=== PATIENT | male | born 1965 | race Caucasian/White ===

== ENCOUNTER 2021-07-20 14:31 | Inpatient (IN) | payer MEDICARE, MEDICAID ==
[2021-07-20] MEDS ORDERED: Lactated Ringers 1,000 ML IV ONE (14:59)
--- NOTE | 2021-07-20 15:33 | EDM.PDOC ---
<Daljit Charles - Last Filed: 07/20/21 19:23> ED HPI GENERAL MEDICAL PROBLEM - General Chief Complaint: Respiratory Problem Stated Complaint: REFERAL FROM CLINIC Time Seen by Provider: 07/20/21 14:55 - History of Present Illness INITIAL COMMENTS - FREE TEXT/NARRATIVE: CHIEF COMPLAINT(S): Shortness of breath HISTORY OF PRESENT ILLNESS: This is a 58-year-old man with a past medical history of hypertension and sleep apnea who comes to the emergency department with a chief complaint of shortness of breath. The patient states that for approximately 2 days now he has been experiencing sneezing, alternating fever and chills and shortness of breath. He states that he comes to the emergency department because of increased shortness of breath. He states that he is short of breath all the time. He denies any cough but states that it started like a head cold. He denies any pain. He denies any recent travel, recent surgery or prior history of DVT or PE. He states that he has not had his Covid vaccines. He denies any Covid exposures. He denies any lower extremity edema or history of CHF, asthma or COPD. He denies any tobacco use. REVIEW OF SYSTEMS: Constitutional: Positive for fever and chills Eyes: Denies eye pain Ears, Nose, Mouth, & Throat: Denies earache Cardiovascular: Denies chest pain Respiratory: Positive for shortness of breath Gastrointestinal: Denies Nausea, vomiting, diarrhea, hematochezia. Genitourinary: Denies hematuria Skin:Denies a rash MSK: Denies joint pain Neurological: Denies blurred vision Psychiatric: Denies depression PAST MEDICAL HISTORY: As per history of present illness and as reviewed below otherwise noncontributory. SURGICAL HISTORY: As per history of present illness and as reviewed below otherwise noncontributory. SOCIAL HISTORY: As per history of present illness and as reviewed below otherwise noncontributory. FAMILY HISTORY: As per history of present illness and as reviewed below otherwise noncontributory. EXAMINATION OF ORGAN SYSTEMS/BODY AREAS: Constitutional: Blood pressure is 187/113, heart rate 109, respiratory rate 18 with an oxygen saturation 85% on room air. Patient was saturating 98% on 2 L nasal cannula. Temperature 36.6 General: Middle-aged man who appears to be in a mild amount of respiratory distress Psychiatric: Appropriate mood and affect. Eyes: No scleral icterus or conjunctival erythema ENMT: Moist mucous membranes. No pharyngeal erythema Cardiovascular: Tachycardic but regular no gallops, murmurs, or rubs. Bilateral upper extremity pulses symmetric and intact. No peripheral edema. No JVD. Respiratory: Breath sounds are equal bilaterally no wheezing but there is rhonchorous breath sounds bilaterally patient speaking in 3-4 word sentences. No prolonged expiratory phase. Gastrointestinal: Soft, non-tender, non-distended. Normoactive bowel sounds Genitourinary: No suprapubic tenderness Musculoskeletal: Normal range of motion. Skin: No lesions or abrasions. Neurological: Alert, GCS 15 MEDICAL DECISION MAKING AND COURSE IN THE ED WITH INTERPRETATION/REVIEW OF DIAGNOSTIC STUDIES: This is a this is a 58-year-old man with a past medical history of hypertension and sleep apnea who comes to the emergency department with 2 to 3 days of dyspnea who is hypoxic on room air and hypertensive and tachycardic. At this time shelter monitor did reveal sinus rhythm and pulse oximetry with good waveform on 2 L nasal cannula was 98%. At this time we did obtain an EKG which was unremarkable. At this time differential includes pneumonia, Covid, pneumothorax. Obtain a chest x-ray. Obtain CBC, CMP, INR, lactic acid, Covid, troponin. Will obtain a chest x-ray and an angiogram of the chest to evaluate for pulmonary embolism. We will provide the patient with 1 L of lactated Ringer's bolus. Place the patient on shelter monitor and pulse oximetry. Laboratory: CBC reveals a leukocytosis of 14.22 with neutrophilic predominance. No left shift. INR is normal. CMP is unremarkable except for hypocalcemia at 8.4. Lactic acid is normal. Alkaline phosphatase is elevated at 124. Troponin is negative. BNP is mildly elevated at 291. Covid is negative. The radiological images were viewed by myself along with reading the report from the radiologist. Chest x-ray reveals increased soft tissue density in the right hilum likely due to overlapping vascular structures. A focal infiltrate or mass cannot entirely be excluded. On reevaluation the patient did have an episode of diaphoresis and tachypnea. With deep breathing exercises the patient's heart rate had improved and he was no longer short of breath. POC glucose 128. Given the rhonchorous breath sounds I did discuss with the patient that we may provide him with a DuoNeb treatment. He denies any tobacco use but states that he quit using crack cocaine approximately 1 month ago. He denies any tobacco use currently, cocaine use currently or any other illicit substances. He denies any history of COPD or CHF. He denies any history of asthma. Repeat EKG was obtained which was unremarkable. After labs and chest x-ray I did start the patient on cefepime and vancomycin for presumed pneumonia. We did obtain blood cultures prior to administering the antibiotics. There is no need for 30 cc/kg bolus as the patient is not hypotensive and has a normal lactic acid. There was a delay in starting the antibiotics as there was a patient in the emergency department requiring more urgent attention. The radiological images were viewed by myself along with reading the report from the radiologist. CT angiogram of the chest does not reveal any evidence of pulmonary embolism. There is bilateral patchy infiltrates suggestive of COVID-19 infection. Patient on repeat vitals after his home medication of amlodipine was given had improved. His tachycardia had also improved. He was speaking in full sentences and was no longer short of breath as earlier. I did discuss that I would like to obtain a repeat troponin. He was amenable to this plan. Patient was signed out to oncoming night team physician pending repeat troponin and final disposition DISPOSITION: Patient was signed out to oncoming team physician pending repeat troponin and final disposition CONDITION: Serious PROCEDURES: Cardiac monitoring interpretation, pulse oximetry interpretation FINAL IMPRESSION(S)/DIAGNOSES: 1. Acute hypoxic respiratory failure requiring oxygen supplementation secondary to bilateral multifocal pneumonia 2. Acute bilateral multifocal pneumonia 3. Acute sepsis secondary to bilateral multifocal pneumonia 4. Hypertension likely secondary to medication noncompliance. Critical Care Procedure Note Authorized and performed by: Daljit Charles M.D. Critical Care Time: 74 minutes Due to a high probability of clinically significant, life threatening deterioration, the patient required my highest level of preparedness to intervene emergently and I personally spent this critical care time directly and personally managing the patient. This critical care time included obtaining a history, examining the patient, pulse oximetry; ordering and review of studies; arranging urgent treatment with development of a management plan; evaluation of a patients reponse to treatment; frequent assessment; and discussions with other providers. This critical care time was performed to assess and manage the high probability of imminent, life threatening deterioration that could result in multiorgan failure. It was exclusive of separate billable procedures and treating other patients. Please see MDM section and rest of the note for further information on patient assessment and treatment. Please see MDM section and rest of the note for further information on patient assessment and treatment. Daljit Charles M.D. - Related Data Allergies Allergy/AdvReac Type Severity Reaction Status Date / Time No Known Allergies Allergy Verified 07/20/21 14:57 Home Meds: Home Meds Tamsulosin [Flomax] 0.4 mg PO DAILY 07/20/21 [History] amLODIPine [Norvasc] 10 mg PO DAILY 07/20/21 [History] Past Medical History - Past Health History Medical/Surgical History: Denies Medical/Surgical History Cardiovascular History: Reports: Hypertension - Infectious Disease History Infectious Disease History: Reports: None Social & Family History - Recreational Drug Use Recreational Drug Use: No ED ROS GENERAL - Review of Systems Review Of Systems: See Below ED EXAM, GENERAL - Physical Exam Exam: See Below Departure - Departure Disposition: Admitted As Inpatient 66 Clinical Impression: Hypoxia, Pneumonia - Discharge Information Referrals: PCP,None [Primary Care Provider] - Forms: ED Department Discharge Sepsis Event Note (ED) - Evaluation Sepsis Screening Result: Possible Sepsis Risk <Mason Castillo - Last Filed: 07/20/21 19:40> Course - Vital Signs Last Recorded V/S: Last Vital Signs Temp 98 F 07/20/21 14:58 Pulse 122 H 07/20/21 18:32 Resp 18 07/20/21 18:32 BP 172/103 H 07/20/21 18:32 Pulse Ox 95 07/20/21 18:32 - Orders/Labs/Meds Orders: Active Orders 24 hr Category Date Time Status RT Aerosol Therapy [RC] ASDIRECTED Care 07/20/21 16:05 Active CULTURE BLOOD [BC] Stat Lab 07/20/21 15:05 Received CULTURE BLOOD [BC] Stat Lab 07/20/21 16:56 Received Sodium Chloride 0.9% [Saline Flush] Med 07/20/21 16:29 Active 10 ml FLUSH ASDIRECTED PRN Sodium Chloride 0.9% [Saline Flush] Med 07/20/21 16:29 Active 2.5 ml FLUSH ASDIRECTED PRN Blood Culture x2 Reflex Set [OM.PC] Stat Oth 07/20/21 16:28 Ordered Saline Lock Insert [OM.PC] Stat Oth 07/20/21 16:29 Ordered Severe Sepsis Onset Time [OM.PC] Stat Ot 07/20/21 16:29 Ordered Medication Orders Sodium Chloride (Sodium Chloride 0.9% 10 Ml Syringe) 10 ml FLUSH ASDIRECTED PRN PRN Reason: Keep Vein Open Last Admin: 07/20/21 17:24 Dose: 10 ml Documented by: MATTI Sodium Chloride (Sodium Chloride 0.9% 2.5 Ml Syringe) 2.5 ml FLUSH ASDIRECTED PRN PRN Reason: Keep Vein Open Last Admin: 07/20/21 17:24 Dose: 2.5 ml Documented by: MATTI Labs: Laboratory Tests 07/20/21 07/20/21 07/20/21 Range/Units 15:05 15:05 15:05 WBC 14.22 H (4.0-11.0) K/uL RBC 5.23 (4.50-5.90) M/uL Hgb 16.3 (13.0-17.0) g/dL Hct 47.4 (38.0-50.0) % MCV 90.6 (80.0-98.0) fL MCH 31.2 (27.0-32.0) pg MCHC 34.4 (31.0-37.0) g/dL RDW Std Deviation 43.4 (28.0-62.0) fl RDW Coeff of Shakir 13 (11.0-15.0) % Plt Count 261 (150-400) K/uL MPV 11.70 (7.40-12.00) fL Neut % (Auto) 83.6 H (48.0-80.0) % Lymph % (Auto) 7.9 L (16.0-40.0) % [place] % (Auto) 7.8 (0.0-15.0) % Eos % (Auto) 0.6 (0.0-7.0) % Baso % (Auto) 0.1 (0.0-1.5) % Neut # (Auto) 11.9 H (1.4-5.7) K/uL Lymph # (Auto) 1.1 (0.6-2.4) K/uL [place] # (Auto) 1.1 H (0.0-0.8) K/uL Eos # (Auto) 0.1 (0.0-0.7) K/uL Baso # (Auto) 0.0 (0.0-0.1) K/uL Nucleated RBC % 0.0 /100WBC Nucleated RBCs # 0 K/uL INR Sodium 142 (136-148) mmol/L Potassium 3.6 (3.5-5.1) mmol/L Chloride 104 (98-107) mmol/L Carbon Dioxide 27.9 (21.0-32.0) mmol/L BUN 8 (7.0-18.0) mg/dL Creatinine 1.0 (0.8-1.3) mg/dL Est Cr Clr Drug Dosing 71.29 mL/min Estimated GFR (MDRD) > 60.0 ml/min Glucose 102 (74-106) mg/dL POC Glucose (70-99) mg/dL Lactic Acid 1.0 (0.4-2.0) mmol/L Calcium 8.4 L (8.5-10.1) mg/dL Total Bilirubin 0.5 (0.2-1.0) mg/dL AST 21 (15-37) IU/L ALT 27 (14-63) IU/L Alkaline Phosphatase 124 H (46-116) U/L Troponin I < 0.050 (0.000-0.056) ng/mL B-Natriuretic Peptide (<100) PG/ML Total Protein 7.3 (6.4-8.2) g/dL Albumin 3.5 (3.4-5.0) g/dL Globulin 3.8 (2.6-4.0) g/dL Albumin/Globulin Ratio 0.9 (0.9-1.6) SARS-CoV-2 RNA (MARITA) (NEGATIVE) 07/20/21 07/20/21 07/20/21 Range/Units 15:05 15:05 15:18 WBC (4.0-11.0) K/uL RBC (4.50-5.90) M/uL Hgb (13.0-17.0) g/dL Hct (38.0-50.0) % MCV (80.0-98.0) fL MCH (27.0-32.0) pg MCHC (31.0-37.0) g/dL RDW Std Deviation (28.0-62.0) fl RDW Coeff of Shakir (11.0-15.0) % Plt Count (150-400) K/uL MPV (7.40-12.00) fL Neut % (Auto) (48.0-80.0) % Lymph % (Auto) (16.0-40.0) % [place] % (Auto) (0.0-15.0) % Eos % (Auto) (0.0-7.0) % Baso % (Auto) (0.0-1.5) % Neut # (Auto) (1.4-5.7) K/uL Lymph # (Auto) (0.6-2.4) K/uL [place] # (Auto) (0.0-0.8) K/uL Eos # (Auto) (0.0-0.7) K/uL Baso # (Auto) (0.0-0.1) K/uL Nucleated RBC % /100WBC Nucleated RBCs # K/uL INR 1.06 Sodium (136-148) mmol/L Potassium (3.5-5.1) mmol/L Chloride (98-107) mmol/L Carbon Dioxide (21.0-32.0) mmol/L BUN (7.0-18.0) mg/dL Creatinine (0.8-1.3) mg/dL Est Cr Clr Drug Dosing mL/min Estimated GFR (MDRD) ml/min Glucose (74-106) mg/dL POC Glucose (70-99) mg/dL Lactic Acid (0.4-2.0) mmol/L Calcium (8.5-10.1) mg/dL Total Bilirubin (0.2-1.0) mg/dL AST (15-37) IU/L ALT (14-63) IU/L Alkaline Phosphatase (46-116) U/L Troponin I (0.000-0.056) ng/mL B-Natriuretic Peptide 291 H (<100) PG/ML Total Protein (6.4-8.2) g/dL Albumin (3.4-5.0) g/dL Globulin (2.6-4.0) g/dL Albumin/Globulin Ratio (0.9-1.6) SARS-CoV-2 RNA (MARITA) NEGATIVE (NEGATIVE) 07/20/21 07/20/21 Range/Units 15:45 18:16 WBC (4.0-11.0) K/uL RBC (4.50-5.90) M/uL Hgb (13.0-17.0) g/dL Hct (38.0-50.0) % MCV (80.0-98.0) fL MCH (27.0-32.0) pg MCHC (31.0-37.0) g/dL RDW Std Deviation (28.0-62.0) fl RDW Coeff of Shakir (11.0-15.0) % Plt Count (150-400) K/uL MPV (7.40-12.00) fL Neut % (Auto) (48.0-80.0) % Lymph % (Auto) (16.0-40.0) % [place] % (Auto) (0.0-15.0) % Eos % (Auto) (0.0-7.0) % Baso % (Auto) (0.0-1.5) % Neut # (Auto) (1.4-5.7) K/uL Lymph # (Auto) (0.6-2.4) K/uL [place] # (Auto) (0.0-0.8) K/uL Eos # (Auto) (0.0-0.7) K/uL Baso # (Auto) (0.0-0.1) K/uL Nucleated RBC % /100WBC Nucleated RBCs # K/uL INR Sodium (136-148) mmol/L Potassium (3.5-5.1) mmol/L Chloride (98-107) mmol/L Carbon Dioxide (21.0-32.0) mmol/L BUN (7.0-18.0) mg/dL Creatinine (0.8-1.3) mg/dL Est Cr Clr Drug Dosing mL/min Estimated GFR (MDRD) ml/min Glucose (74-106) mg/dL POC Glucose 128 H (70-99) mg/dL Lactic Acid (0.4-2.0) mmol/L Calcium (8.5-10.1) mg/dL Total Bilirubin (0.2-1.0) mg/dL AST (15-37) IU/L ALT (14-63) IU/L Alkaline Phosphatase (46-116) U/L Troponin I 0.050 (0.000-0.056) ng/mL B-Natriuretic Peptide (<100) PG/ML Total Protein (6.4-8.2) g/dL Albumin (3.4-5.0) g/dL Globulin (2.6-4.0) g/dL Albumin/Globulin Ratio (0.9-1.6) SARS-CoV-2 RNA (MARITA) (NEGATIVE) Meds: Medications Generic Name Dose Route Start Last Admin Trade Name Freq PRN Reason Stop Dose Admin Sodium Chloride 10 ml 07/20/21 16:29 07/20/21 17:24 Sodium Chloride 0.9% 10 Ml Syringe FLUSH 10 ml ASDIRECTED PRN Administration Keep Vein Open Sodium Chloride 2.5 ml 07/20/21 16:29 07/20/21 17:24 Sodium Chloride 0.9% 2.5 Ml Syringe FLUSH 2.5 ml ASDIRECTED PRN Administration Keep Vein Open Discontinued Medications Generic Name Dose Route Start Last Admin Trade Name Freq PRN Reason Stop Dose Admin Albuterol/Ipratropium 3 ml 07/20/21 16:05 07/20/21 16:24 Albuterol/Ipratropium 3.0-0.5 Mg/3 Ml Neb Soln NEB 07/20/21 16:06 3 ml ONETIME ONE Administration Amlodipine Besylate 10 mg 07/20/21 15:36 07/20/21 15:47 Amlodipine 5 Mg Tab PO 07/20/21 15:37 10 mg ONETIME ONE Administration Lactated Ringer's 1,000 mls @ 999 mls/hr 07/20/21 14:59 07/20/21 15:20 Ringers, Lactated IV 07/20/21 15:59 999 mls/hr .BOLUS ONE Administration Cefepime HCl 2 gm/ Premix 50 mls @ 100 mls/hr 07/20/21 16:30 07/20/21 17:24 IV 07/20/21 16:59 100 mls/hr ONETIME ONE Administration Vancomycin HCl 1 gm/ Sodium 250 mls @ 166 mls/hr 07/20/21 16:30 07/20/21 17:24 Chloride IV 07/20/21 18:00 166 mls/hr ONETIME ONE Administration Cefepime HCl 2 gm/ Premix 50 mls @ 100 mls/hr 07/20/21 17:30 07/20/21 17:53 IV 07/20/21 17:59 Not Given ONETIME ONE Iopamidol 100 ml 07/20/21 17:52 07/20/21 17:54 Iopamidol 755 Mg/Ml 500 Ml Multipack Bottle IVPUSH 07/20/21 17:53 100 ml ONETIME STA Administration Lorazepam 1 mg 07/20/21 16:07 07/20/21 16:08 Lorazepam 2 Mg/Ml Sdv IVPUSH 07/20/21 16:08 1 mg ONETIME ONE Administration Lorazepam Confirm 07/20/21 16:07 07/20/21 16:26 Lorazepam 2 Mg/Ml Sdv Administered 07/20/21 16:08 Not Given Dose 2 mg .ROUTE .STK-MED ONE Departure - Departure Time of Disposition: 19:39 Condition: Fair Sepsis Event Note (ED) - Focused Exam Vital Signs: Vital Signs Temp Pulse Resp BP BP Pulse Ox 07/20/21 18:32 122 H 18 172/103 H 95 07/20/21 18:00 119 H 18 163/101 H 94 L 07/20/21 17:12 127 H 184/112 H 07/20/21 16:53 124 H 195/122 H 07/20/21 15:47 203/171 H 07/20/21 14:58 98 F 109 H 18 187/113 H 85 L - Assessment/Plan Assessment:: Patient received in signout from prior provider at 7 PM. The second troponin is negative. Patient requires admission for acute hypoxic respiratory failure secondary to bacterial pneumonia. Patient will be admitted as an inpatient with telemetry. Discussed in full with the admitting hospitalist.
--- NOTE | 2021-07-20 15:33 | CR ---
Indication: Cough Technique: Chest 1 view Comparison: None Findings/Impression: Cardiac size at upper limits of normal. Normal pulmonary vasculature. There is increased soft tissue density in the right hilum likely due to overlapping vascular structures. A focal infiltrate or mass cannot entirely be excluded. Consider chest CT for further evaluation. Remainder of the lungs are clear. No effusion or pneumothorax. No acute osseous abnormality. Dictated by Ani Glover MD @ 07/20/2021 3:32:[address] Ani Glover @ Jul 20 2021 3:32PM
[2021-07-20] MEDS ORDERED: amLODIPine 5 MG Tab PO ONE (15:36)
[2021-07-20 15:57] LABS: BLOOD UREA NITROGEN,BUN 8 mg/dL (7.0-18.0); CARBON DIOXIDE,CO2 27.9 mmol/L (21.0-32.0); CHLORIDE,CL 104 mmol/L (98-107); GLUCOSE RANDOM 102 mg/dL (74-106); POTASSIUM,K 3.6 mmol/L (3.5-5.1); SODIUM,NA 142 mmol/L (136-148)
[2021-07-20] MEDS ORDERED: Albuterol/Ipratropium 3.0-0.5 MG/3 ML Neb Soln NEB ONE (16:05)
[2021-07-20] MEDS ORDERED: LORazepam 2 MG/ML SDV ONE (16:07)
[2021-07-20] MEDS ORDERED: LORazepam 2 MG/ML SDV IVPUSH ONE (16:07)
[2021-07-20] MEDS ORDERED: Sodium Chloride 0.9% 2.5 ML Syringe FLUSH PRN (16:29)
[2021-07-20] MEDS ORDERED: Sodium Chloride 0.9% 10 ML Syringe FLUSH PRN (16:29)
[2021-07-20] MEDS ORDERED: Cefepime 2 GM in Premix Bag 1 BAG IV ONE ×2 (16:30→17:30)
[2021-07-20] MEDS ORDERED: Iopamidol 755 MG/ML 500 ML Multipack Bottle IVPUSH STA (17:52)
--- NOTE | 2021-07-20 18:23 | CT ---
INDICATION: Cough, abnormal chest radiograph TECHNIQUE: CT chest pulmonary PE protocol acquired with 100 cc Isovue 370 IV contrast. COMPARISON: Chest radiograph from today FINDINGS: Cardiovascular structures: Normal vascular enhancement of the pulmonary arteries, no sign of pulmonary embolism. Cardiomegaly. Coronary artery calcifications. No sign of aneurysm or dissection in the thoracic aorta. Mediastinum and rahel: No mass or adenopathy. Lungs: Patchy ground-glass opacities in the lungs. Pleura and pericardium: No effusions. Chest wall and axilla: No mass or adenopathy. Upper abdomen: Unremarkable. Bones: No significant findings. IMPRESSION: No pulmonary embolism. Patchy ground-glass opacities in both lungs. The appearance is typical for COVID-19 infection. On abnormal soft tissue density in the right hilum on the chest radiograph performed earlier today is due to normal overlapping vascular structures. Please note that all CT scans at this facility use dose modulation, iterative reconstruction, and/or weight-based dosing when appropriate to reduce radiation dose to as low as reasonably achievable. Dictated by Ani Glover MD @ 07/20/2021 6:21:[address] Ani Glover @ Jul 20 2021 6:21PM
--- NOTE | 2021-07-20 19:53 | PCM.EKG ---
#1 Interpretation EKG Date: 07/20/21 Time: 15:00 Rhythm: NSR Rate (Beats/Min): 107 [place]: Normal P-Wave: Present QRS: Normal ST-T: Normal QT: Normal Comparison: NA - No Prior EKG EKG Interpretation Comments: Sinus Rhythm with LVH #2 Interpretation EKG Date: 07/20/21 Time: 15:49 Rhythm: NSR Rate (Beats/Min): 120 [place]: Normal P-Wave: Present QRS: Normal ST-T: Normal QT: Normal Comparison: No Change (today) EKG Interpretation Comments: Sinus Tachycardia with LVH
[2021-07-20] MEDS ORDERED: Ondansetron 4 MG/2 ML SDV IVPUSH PRN (20:43)
[2021-07-20] MEDS ORDERED: Acetaminophen 325 MG Tab PO PRN (20:43)
[2021-07-20] MEDS ORDERED: Morphine 2 MG/ML SYRINGE IVPUSH PRN (20:43)
--- NOTE | 2021-07-20 20:55 | PCM.HP.2 ---
H&P History of Present Illness - General Date of Service: 07/20/21 Admit Problem/Dx: Admission Diagnosis/Problem Admission Diagnosis/Problem Hypoxia - History of Present Illness Initial Comments - Free Text/Narative: This is a 58-year-old man with a past medical history of hypertension and sleep apnea who comes to the emergency department with a chief complaint of shortness of breath. Patient states that he was in his normal state of health up until 2 days back when he started having "head cold " and since then he has been experiencing sneezing, fevers and chills as well as shortness of breath. Patient states that he has been struggling to breathe normally for past 1 day and feels very tired and lethargic. He states that he is short of breath all the time. He denies any recent travel, recent surgery or prior history of DVT or PE. He states that he has not had his Covid vaccines. He denies any Covid exposures. He denies any lower extremity edema or history of CHF, asthma or COPD. He denies any tobacco use. He states that he quit using cocaine about a month back, denies any smoking history. In the ER patient was found to be hypoxic saturating 85% on room air so he was started on oxygen by nasal cannula which helped improved crease his pulse ox to low 90s. Patient was diaphoretic and tachypneic in the ER. He met SIRS criteria and sepsis protocol was initiated with broad- spectrum antibiotics IV fluids and checking a lactic acid, and obtaining blood cultures CBC revealed a leukocytosis of 14.22 with neutrophilic predominance. No left shift. INR is normal. CMP is unremarkable except for hypocalcemia at 8.4. Lactic acid is normal. Alkaline phosphatase is elevated at 124. Troponin is negative. BNP is mildly elevated at 291. Covid is negative. Chest x-ray reveals increased soft tissue density in the right hilum likely due to overlapping vascular structures. A focal infiltrate or mass cannot entirely be excluded. EKG was unremarkable, CT angiogram of the chest does not reveal any evidence of pulmonary embolism. There is bilateral patchy infiltrates suggestive of COVID-19 infection, although patient's Covid test was negative. Troponin was checked as well which was negative, patient's blood pressure was quite elevated in the ER so he received oral amlodipine which did help improve his blood pressure. Patient was eventually admitted to the hospital for further management of his acute hypoxic respiratory failure secondary to pneumonia. During my exam patient was transitioned to high flow as he was requiring high levels of oxygen via nasal cannula, patient was resting comfortably stated to me that he felt much better and was able to get some sleep. - Related Data Allergies/Adverse Reactions: Allergies Allergy/AdvReac Type Severity Reaction Status Date / Time No Known Allergies Allergy Verified 07/20/21 14:57 Home Medications: Home Meds Tamsulosin [Flomax] 0.4 mg PO DAILY 07/20/21 [History] amLODIPine [Norvasc] 10 mg PO DAILY 07/20/21 [History] Past Medical History - Past Health History Medical/Surgical History: Denies Medical/Surgical History Cardiovascular History: Reports: Hypertension - Infectious Disease History Infectious Disease History: Reports: None Social & Family History - Recreational Drug Use Recreational Drug Use: No H&P Review of Systems - Review of Systems: Review Of Systems: See Below General: Reports: Fever, Chills, Malaise, Weakness HEENT: Reports: Sinus Congestion Pulmonary: Reports: Shortness of Breath, Sputum. Denies: Cough Cardiovascular: Reports: Palpitations, Dyspnea on Exertion. Denies: Chest Pain, Orthopnea Gastrointestinal: Denies: Abdominal Pain, Anorexia, Black Stool, Nausea, Vomiting Genitourinary: Denies: Dysuria, Frequency, Burning, Pain Musculoskeletal: Denies: Neck Pain, Shoulder Pain, Arm Pain Skin: Denies: Cyanosis, Jaundice, Mottled Psychiatric: Denies: Confusion, Depression, Mood Lability Neurological: Denies: Confusion, Dizziness, Headache Exam - Exam Exam: See Below - Vital Signs Vital Signs: Last Vital Signs Temp 37.2 C 07/20/21 20:40 Pulse 114 H 07/20/21 20:40 Resp 40 H 07/20/21 20:40 BP 168/105 H 07/20/21 20:40 Pulse Ox 93 L 07/20/21 20:40 Weight: 62.596 kg - Exam Quality Assessment: Supplemental Oxygen General: Alert, Oriented, Cooperative, Mild Distress Neck: Supple, Trachea Midline Lungs: Normal Respiratory Effort, Decreased Breath Sounds, Crackles, Rales Cardiovascular: Regular Rhythm, Normal S1, Normal S2, Tachycardia GI/Abdominal Exam: Normal Bowel Sounds, Soft, Non-Tender - Patient Data Lab Results Last 24 hrs: Laboratory Results - last 24 hr 07/20/21 07/20/21 07/20/21 Range/Units 15:05 15:05 15:05 WBC 14.22 H (4.0-11.0) K/uL RBC 5.23 (4.50-5.90) M/uL Hgb 16.3 (13.0-17.0) g/dL Hct 47.4 (38.0-50.0) % MCV 90.6 (80.0-98.0) fL MCH 31.2 (27.0-32.0) pg MCHC 34.4 (31.0-37.0) g/dL RDW Std Deviation 43.4 (28.0-62.0) fl RDW Coeff of Shakir 13 (11.0-15.0) % Plt Count 261 (150-400) K/uL MPV 11.70 (7.40-12.00) fL Neut % (Auto) 83.6 H (48.0-80.0) % Lymph % (Auto) 7.9 L (16.0-40.0) % Rolette % (Auto) 7.8 (0.0-15.0) % Eos % (Auto) 0.6 (0.0-7.0) % Baso % (Auto) 0.1 (0.0-1.5) % Neut # (Auto) 11.9 H (1.4-5.7) K/uL Lymph # (Auto) 1.1 (0.6-2.4) K/uL Rolette # (Auto) 1.1 H (0.0-0.8) K/uL Eos # (Auto) 0.1 (0.0-0.7) K/uL Baso # (Auto) 0.0 (0.0-0.1) K/uL Nucleated RBC % 0.0 /100WBC Nucleated RBCs # 0 K/uL INR Sodium 142 (136-148) mmol/L Potassium 3.6 (3.5-5.1) mmol/L Chloride 104 (98-107) mmol/L Carbon Dioxide 27.9 (21.0-32.0) mmol/L BUN 8 (7.0-18.0) mg/dL Creatinine 1.0 (0.8-1.3) mg/dL Est Cr Clr Drug Dosing 71.29 mL/min Estimated GFR (MDRD) > 60.0 ml/min Glucose 102 (74-106) mg/dL POC Glucose (70-99) mg/dL Lactic Acid 1.0 (0.4-2.0) mmol/L Calcium 8.4 L (8.5-10.1) mg/dL Total Bilirubin 0.5 (0.2-1.0) mg/dL AST 21 (15-37) IU/L ALT 27 (14-63) IU/L Alkaline Phosphatase 124 H (46-116) U/L Troponin I < 0.050 (0.000-0.056) ng/mL B-Natriuretic Peptide (<100) PG/ML Total Protein 7.3 (6.4-8.2) g/dL Albumin 3.5 (3.4-5.0) g/dL Globulin 3.8 (2.6-4.0) g/dL Albumin/Globulin Ratio 0.9 (0.9-1.6) SARS-CoV-2 RNA (MARITA) (NEGATIVE) 07/20/21 07/20/21 07/20/21 Range/Units 15:05 15:05 15:18 WBC (4.0-11.0) K/uL RBC (4.50-5.90) M/uL Hgb (13.0-17.0) g/dL Hct (38.0-50.0) % MCV (80.0-98.0) fL MCH (27.0-32.0) pg MCHC (31.0-37.0) g/dL RDW Std Deviation (28.0-62.0) fl RDW Coeff of Shakir (11.0-15.0) % Plt Count (150-400) K/uL MPV (7.40-12.00) fL Neut % (Auto) (48.0-80.0) % Lymph % (Auto) (16.0-40.0) % Rolette % (Auto) (0.0-15.0) % Eos % (Auto) (0.0-7.0) % Baso % (Auto) (0.0-1.5) % Neut # (Auto) (1.4-5.7) K/uL Lymph # (Auto) (0.6-2.4) K/uL Rolette # (Auto) (0.0-0.8) K/uL Eos # (Auto) (0.0-0.7) K/uL Baso # (Auto) (0.0-0.1) K/uL Nucleated RBC % /100WBC Nucleated RBCs # K/uL INR 1.06 Sodium (136-148) mmol/L Potassium (3.5-5.1) mmol/L Chloride (98-107) mmol/L Carbon Dioxide (21.0-32.0) mmol/L BUN (7.0-18.0) mg/dL Creatinine (0.8-1.3) mg/dL Est Cr Clr Drug Dosing mL/min Estimated GFR (MDRD) ml/min Glucose (74-106) mg/dL POC Glucose (70-99) mg/dL Lactic Acid (0.4-2.0) mmol/L Calcium (8.5-10.1) mg/dL Total Bilirubin (0.2-1.0) mg/dL AST (15-37) IU/L ALT (14-63) IU/L Alkaline Phosphatase (46-116) U/L Troponin I (0.000-0.056) ng/mL B-Natriuretic Peptide 291 H (<100) PG/ML Total Protein (6.4-8.2) g/dL Albumin (3.4-5.0) g/dL Globulin (2.6-4.0) g/dL Albumin/Globulin Ratio (0.9-1.6) SARS-CoV-2 RNA (MARITA) NEGATIVE (NEGATIVE) 07/20/21 07/20/21 Range/Units 15:45 18:16 WBC (4.0-11.0) K/uL RBC (4.50-5.90) M/uL Hgb (13.0-17.0) g/dL Hct (38.0-50.0) % MCV (80.0-98.0) fL MCH (27.0-32.0) pg MCHC (31.0-37.0) g/dL RDW Std Deviation (28.0-62.0) fl RDW Coeff of Shakir (11.0-15.0) % Plt Count (150-400) K/uL MPV (7.40-12.00) fL Neut % (Auto) (48.0-80.0) % Lymph % (Auto) (16.0-40.0) % Rolette % (Auto) (0.0-15.0) % Eos % (Auto) (0.0-7.0) % Baso % (Auto) (0.0-1.5) % Neut # (Auto) (1.4-5.7) K/uL Lymph # (Auto) (0.6-2.4) K/uL Rolette # (Auto) (0.0-0.8) K/uL Eos # (Auto) (0.0-0.7) K/uL Baso # (Auto) (0.0-0.1) K/uL Nucleated RBC % /100WBC Nucleated RBCs # K/uL INR Sodium (136-148) mmol/L Potassium (3.5-5.1) mmol/L Chloride (98-107) mmol/L Carbon Dioxide (21.0-32.0) mmol/L BUN (7.0-18.0) mg/dL Creatinine (0.8-1.3) mg/dL Est Cr Clr Drug Dosing mL/min Estimated GFR (MDRD) ml/min Glucose (74-106) mg/dL POC Glucose 128 H (70-99) mg/dL Lactic Acid (0.4-2.0) mmol/L Calcium (8.5-10.1) mg/dL Total Bilirubin (0.2-1.0) mg/dL AST (15-37) IU/L ALT (14-63) IU/L Alkaline Phosphatase (46-116) U/L Troponin I 0.050 (0.000-0.056) ng/mL B-Natriuretic Peptide (<100) PG/ML Total Protein (6.4-8.2) g/dL Albumin (3.4-5.0) g/dL Globulin (2.6-4.0) g/dL Albumin/Globulin Ratio (0.9-1.6) SARS-CoV-2 RNA (MARITA) (NEGATIVE) Result Diagrams: 07/20/21 15:05 07/20/21 15:05 Sepsis Event Note - Evaluation Sepsis Screening Result: Possible Sepsis Risk - Focused Exam Vital Signs: Vital Signs Temp Pulse Resp BP BP Pulse Ox 07/20/21 20:40 37.2 C 114 H 40 H 168/105 H 93 L 07/20/21 19:43 119 H 164/97 H 07/20/21 18:32 122 H 18 172/103 H 95 07/20/21 18:00 119 H 18 163/101 H 94 L 07/20/21 17:12 127 H 184/112 H 07/20/21 16:53 124 H 195/122 H 07/20/21 15:47 203/171 H 07/20/21 14:58 36.6 C 109 H 18 187/113 H 85 L - Problem List (1) HTN (hypertension) SNOMED Code(s): 73800961 ICD Code: I10 - ESSENTIAL (PRIMARY) HYPERTENSION Status: Acute Current Visit: Yes (2) Hypoxia SNOMED Code(s): 786358885 ICD Code: R09.02 - HYPOXEMIA Status: Acute Current Visit: Yes (3) Pneumonia SNOMED Code(s): 119329293 ICD Code: J18.9 - PNEUMONIA, UNSPECIFIED ORGANISM Status: Acute Current Visit: Yes Problem List Initiated/Reviewed/Updated: Yes Orders Last 24hrs: Active Orders 24 hr Category Date Time Status Patient Status [ADT] Routine ADT 07/20/21 19:40 Active Ambulate [RC] ASDIRECTED Care 07/20/21 20:43 Active Antiembolic Devices [RC] PER UNIT ROUTINE Care 07/20/21 20:44 Active Communication Order [RC] DAILY Care 07/20/21 20:48 Active Oxygen Therapy [RC] PRN Care 07/20/21 20:43 Active Pulse Oximetry [RC] PRN Care 07/20/21 20:44 Active RT Aerosol Therapy [RC] ASDIRECTED Care 07/20/21 16:05 Active RT Aerosol Therapy [RC] ASDIRECTED Care 07/20/21 20:45 Active Telemetry Monitoring [Cardiac Monitoring] [RC] . Care 07/20/21 20:08 Active DIRECTED VTE/DVT Education [RC] PER UNIT ROUTINE Care 07/20/21 20:43 Active Vital Signs [RC] Q4H Care 07/20/21 20:43 Active Heart Healthy Diet [DIET] Diet 07/20/21 Dinner Active BMP [BASIC METABOLIC PANEL,BMP] [CHEM] AM Lab 07/21/21 05:11 Ordered CBC WITH AUTO DIFF [HEME] AM Lab 07/21/21 05:11 Ordered CULTURE BLOOD [BC] Stat Lab 07/20/21 15:05 Received CULTURE BLOOD [BC] Stat Lab 07/20/21 16:56 Received MAGNESIUM [CHEM] AM Lab 07/21/21 05:11 Ordered PHOSPHORUS [CHEM] AM Lab 07/21/21 05:11 Ordered Acetaminophen [TylenoL] Med 07/20/21 20:43 Ordered 650 mg PO Q4H PRN Albuterol/Ipratropium [DuoNeb 3.0-0.5 MG/3 ML] Med 07/20/21 20:43 Ordered 3 ml NEB Q4HRRT PRN Cefepime [Maxipime in D5W 1 GM/50 ML] 1 gm Med 07/21/21 02:00 Ordered Premix Bag 1 bag IV Q8H Heparin Sodium Med 07/20/21 20:45 Ordered 5,000 units SUBCUT Q8H Lactated Ringers [Ringers, Lactated] 1,000 ml Med 07/20/21 20:45 Ordered IV ASDIRECTED Morphine Med 07/20/21 20:43 Ordered 1 mg IVPUSH Q3H PRN Ondansetron [Zofran] Med 07/20/21 20:43 Ordered 4 mg IVPUSH Q4H PRN Pharmacy to Dose - Vancomycin Med 07/20/21 21:00 Ordered 1 dose .XX ASDIRECTED Sodium Chloride 0.9% [Saline Flush] Med 07/20/21 16:29 Active 10 ml FLUSH ASDIRECTED PRN Sodium Chloride 0.9% [Saline Flush] Med 07/20/21 16:29 Active 2.5 ml FLUSH ASDIRECTED PRN Blood Culture x2 Reflex Set [OM.PC] Stat Ot 07/20/21 16:28 Ordered Saline Lock Insert [OM.PC] Stat Oth 07/20/21 16:29 Ordered Sequential Compression Device [OM.PC] Per Unit Routine Ot 07/20/21 20:44 Ordered Severe Sepsis Onset Time [OM.PC] Stat Ot 07/20/21 16:29 Ordered Resuscitation Status Routine Resus Stat 07/20/21 20:43 Ordered Medication Orders Acetaminophen (Acetaminophen 325 Mg Tab) 650 mg PO Q4H PRN PRN Reason: Pain (Mild 1-3)/fever Albuterol/Ipratropium (Albuterol/Ipratropium 3.0-0.5 Mg/3 Ml Neb Soln) 3 ml NEB Q4HRRT PRN PRN Reason: Shortness Of Breath/wheezing Heparin Sodium (Porcine) (Heparin Sodium 5,000 Units/Ml Vial) 5,000 units SUBCUT Q8H [facility] Lactated Ringer's (Ringers, Lactated) 1,000 mls @ 125 mls/hr IV ASDIRECTED [facility] Cefepime HCl 1 gm/ Premix 50 mls @ 100 mls/hr IV Q8H [facility] Morphine Sulfate (Morphine 10 Mg/Ml Syringe) 1 mg IVPUSH Q3H PRN PRN Reason: Pain (severe 7-10) Stop: 07/21/21 20:44 Ondansetron HCl (Ondansetron 4 Mg/2 Ml Sdv) 4 mg IVPUSH Q4H PRN PRN Reason: Nausea/Vomiting Sodium Chloride (Sodium Chloride 0.9% 10 Ml Syringe) 10 ml FLUSH ASDIRECTED PRN PRN Reason: Keep Vein Open Last Admin: 07/20/21 17:24 Dose: 10 ml Documented by: MATTI Sodium Chloride (Sodium Chloride 0.9% 2.5 Ml Syringe) 2.5 ml FLUSH ASDIRECTED PRN PRN Reason: Keep Vein Open Last Admin: 07/20/21 17:24 Dose: 2.5 ml Documented by: EDDNIC Vancomycin HCl (Pharmacy To Dose - Vancomycin) 1 dose .XX ASDIRECTED [facility] Assessment/Plan Comment:: 58-year-old male admitted for acute hypoxic respiratory failure secondary to possible viral pneumonia, Although imaging suggest Covid pneumonia-like changes but Covid test is negative, given that patient has elevated white count possible superimposed bacterial infection as a probability Continue IV antibiotics for bacterial pneumonia Continue IV hydration DuoNebs for shortness of breath Robitussin for cough IV morphine for pain IV Zofran for nausea vomiting Heparin for DVT prophylaxis Continue oxygen support via high flow nasal cannula and wean down as tolerated Resume home meds as appropriate
[2021-07-20] MEDS: Albuterol/Ipratropium 3.0-0.5 MG/3 ML Neb Soln NEB PRN (21:58)
[2021-07-20] MEDS: Heparin Sodium 5,000 Units/ML Vial SUBCUT SCH (22:30)
[2021-07-20] MEDS: Lactated Ringers 1,000 ML IV SCH (22:41)
[2021-07-21] MEDS ORDERED: Labetalol 100 MG/20 ML MDV IVPUSH PRN (00:47)
[2021-07-21] MEDS ORDERED: LORazepam 2 MG/ML SDV IVPUSH PRN (01:07)
[2021-07-21] MEDS: Albuterol/Ipratropium 3.0-0.5 MG/3 ML Neb Soln NEB PRN (02:46)
[2021-07-21] MEDS: Cefepime 1 GM in Premix Bag 1 BAG IV SCH ×3 (04:15→18:54)
[2021-07-21] MEDS: Heparin Sodium 5,000 Units/ML Vial SUBCUT SCH ×3 (05:56→20:47)
[2021-07-21 06:05] LABS: BLOOD UREA NITROGEN,BUN 7 mg/dL (7.0-18.0); CARBON DIOXIDE,CO2 30.3 mmol/L (21.0-32.0); CHLORIDE,CL 101 mmol/L (98-107); GLUCOSE RANDOM 119 mg/dL (74-106); POTASSIUM,K 3.5 mmol/L (3.5-5.1); SODIUM,NA 140 mmol/L (136-148)
[2021-07-21] MEDS: amLODIPine 5 MG Tab PO SCH (08:38)
[2021-07-21] MEDS: Tamsulosin 0.4 MG Cap.ER PO SCH (08:38)
[2021-07-21] MEDS ORDERED: Azithromycin 500 MG in Sodium Chloride 0.9% 250 ML IV SCH (10:15)
--- NOTE | 2021-07-21 11:15 | PCM.PN ---
- General Info Date of Service: 07/21/21 Admission Dx/Problem (Free Text): Admission Diagnosis/Problem Admission Diagnosis/Problem acute hypoxic respiratory failure, CAP Subjective Update: Reports he is feeling improved from yesterday does not necessarily feel short of breath though appears to be short of breath. Denies any chest pain. Reports he is coughing no significant amount of phlegm. - Review of Systems General: Reports: Fatigue, Malaise HEENT: Reports: No Symptoms. Denies: Headaches, Sinus Congestion Pulmonary: Reports: Shortness of Breath, Cough. Denies: Sputum Cardiovascular: Reports: Dyspnea on Exertion. Denies: Chest Pain, Palpitations Gastrointestinal: Reports: No Symptoms. Denies: Abdominal Pain, Nausea, Vomiting Genitourinary: Reports: No Symptoms. Denies: Dysuria, Frequency, Burning Musculoskeletal: Reports: No Symptoms Skin: Reports: No Symptoms Neurological: Reports: No Symptoms Psychiatric: Reports: No Symptoms - Patient Data Vitals - Most Recent: Last Vital Signs Temp 97.6 F 07/21/21 08:00 Pulse 88 07/21/21 08:00 Resp 26 H 07/21/21 08:00 BP 153/115 H 07/21/21 08:38 Pulse Ox 96 07/21/21 08:00 Weight - Most Recent: 73.255 kg I&O - Last 24 Hours: Intake & Output 07/20/21 07/21/21 07/21/21 22:59 06:59 14:59 Intake Total 2480 Output Total 1375 3125 Balance -1375 -645 Lab Results Last 24 Hours: Laboratory Results - last 24 hr 07/20/21 07/20/21 07/20/21 Range/Units 15:05 15:05 15:05 WBC 14.22 H (4.0-11.0) K/uL RBC 5.23 (4.50-5.90) M/uL Hgb 16.3 (13.0-17.0) g/dL Hct 47.4 (38.0-50.0) % MCV 90.6 (80.0-98.0) fL MCH 31.2 (27.0-32.0) pg MCHC 34.4 (31.0-37.0) g/dL RDW Std Deviation 43.4 (28.0-62.0) fl RDW Coeff of Shakir 13 (11.0-15.0) % Plt Count 261 (150-400) K/uL MPV 11.70 (7.40-12.00) fL Neut % (Auto) 83.6 H (48.0-80.0) % Lymph % (Auto) 7.9 L (16.0-40.0) % [place] % (Auto) 7.8 (0.0-15.0) % Eos % (Auto) 0.6 (0.0-7.0) % Baso % (Auto) 0.1 (0.0-1.5) % Neut # (Auto) 11.9 H (1.4-5.7) K/uL Lymph # (Auto) 1.1 (0.6-2.4) K/uL [place] # (Auto) 1.1 H (0.0-0.8) K/uL Eos # (Auto) 0.1 (0.0-0.7) K/uL Baso # (Auto) 0.0 (0.0-0.1) K/uL Nucleated RBC % 0.0 /100WBC Nucleated RBCs # 0 K/uL INR Sodium 142 (136-148) mmol/L Potassium 3.6 (3.5-5.1) mmol/L Chloride 104 (98-107) mmol/L Carbon Dioxide 27.9 (21.0-32.0) mmol/L BUN 8 (7.0-18.0) mg/dL Creatinine 1.0 (0.8-1.3) mg/dL Est Cr Clr Drug Dosing 71.29 mL/min Estimated GFR (MDRD) > 60.0 ml/min Glucose 102 (74-106) mg/dL POC Glucose (70-99) mg/dL Lactic Acid 1.0 (0.4-2.0) mmol/L Calcium 8.4 L (8.5-10.1) mg/dL Phosphorus (2.6-4.7) mg/dL Magnesium (1.8-2.4) mg/dL Total Bilirubin 0.5 (0.2-1.0) mg/dL AST 21 (15-37) IU/L ALT 27 (14-63) IU/L Alkaline Phosphatase 124 H (46-116) U/L Troponin I < 0.050 (0.000-0.056) ng/mL B-Natriuretic Peptide (<100) PG/ML Total Protein 7.3 (6.4-8.2) g/dL Albumin 3.5 (3.4-5.0) g/dL Globulin 3.8 (2.6-4.0) g/dL Albumin/Globulin Ratio 0.9 (0.9-1.6) SARS-CoV-2 RNA (MARITA) (NEGATIVE) 07/20/21 07/20/21 07/20/21 Range/Units 15:05 15:05 15:18 WBC (4.0-11.0) K/uL RBC (4.50-5.90) M/uL Hgb (13.0-17.0) g/dL Hct (38.0-50.0) % MCV (80.0-98.0) fL MCH (27.0-32.0) pg MCHC (31.0-37.0) g/dL RDW Std Deviation (28.0-62.0) fl RDW Coeff of Shakir (11.0-15.0) % Plt Count (150-400) K/uL MPV (7.40-12.00) fL Neut % (Auto) (48.0-80.0) % Lymph % (Auto) (16.0-40.0) % [place] % (Auto) (0.0-15.0) % Eos % (Auto) (0.0-7.0) % Baso % (Auto) (0.0-1.5) % Neut # (Auto) (1.4-5.7) K/uL Lymph # (Auto) (0.6-2.4) K/uL [place] # (Auto) (0.0-0.8) K/uL Eos # (Auto) (0.0-0.7) K/uL Baso # (Auto) (0.0-0.1) K/uL Nucleated RBC % /100WBC Nucleated RBCs # K/uL INR 1.06 Sodium (136-148) mmol/L Potassium (3.5-5.1) mmol/L Chloride (98-107) mmol/L Carbon Dioxide (21.0-32.0) mmol/L BUN (7.0-18.0) mg/dL Creatinine (0.8-1.3) mg/dL Est Cr Clr Drug Dosing mL/min Estimated GFR (MDRD) ml/min Glucose (74-106) mg/dL POC Glucose (70-99) mg/dL Lactic Acid (0.4-2.0) mmol/L Calcium (8.5-10.1) mg/dL Phosphorus (2.6-4.7) mg/dL Magnesium (1.8-2.4) mg/dL Total Bilirubin (0.2-1.0) mg/dL AST (15-37) IU/L ALT (14-63) IU/L Alkaline Phosphatase (46-116) U/L Troponin I (0.000-0.056) ng/mL B-Natriuretic Peptide 291 H (<100) PG/ML Total Protein (6.4-8.2) g/dL Albumin (3.4-5.0) g/dL Globulin (2.6-4.0) g/dL Albumin/Globulin Ratio (0.9-1.6) SARS-CoV-2 RNA (MARITA) NEGATIVE (NEGATIVE) 07/20/21 07/20/21 07/21/21 Range/Units 15:45 18:16 05:00 WBC 14.97 H (4.0-11.0) K/uL RBC 5.60 (4.50-5.90) M/uL Hgb 17.6 H (13.0-17.0) g/dL Hct 50.9 H (38.0-50.0) % MCV 90.9 (80.0-98.0) fL MCH 31.4 (27.0-32.0) pg MCHC 34.6 (31.0-37.0) g/dL RDW Std Deviation 44.3 (28.0-62.0) fl RDW Coeff of Shakir 13 (11.0-15.0) % Plt Count 256 (150-400) K/uL MPV 13.20 H (7.40-12.00) fL Neut % (Auto) 83.2 H (48.0-80.0) % Lymph % (Auto) 8.1 L (16.0-40.0) % [place] % (Auto) 8.4 (0.0-15.0) % Eos % (Auto) 0.2 (0.0-7.0) % Baso % (Auto) 0.1 (0.0-1.5) % Neut # (Auto) 12.5 H (1.4-5.7) K/uL Lymph # (Auto) 1.2 (0.6-2.4) K/uL [place] # (Auto) 1.3 H (0.0-0.8) K/uL Eos # (Auto) 0.0 (0.0-0.7) K/uL Baso # (Auto) 0.0 (0.0-0.1) K/uL Nucleated RBC % 0.0 /100WBC Nucleated RBCs # 0 K/uL INR Sodium (136-148) mmol/L Potassium (3.5-5.1) mmol/L Chloride (98-107) mmol/L Carbon Dioxide (21.0-32.0) mmol/L BUN (7.0-18.0) mg/dL Creatinine (0.8-1.3) mg/dL Est Cr Clr Drug Dosing mL/min Estimated GFR (MDRD) ml/min Glucose (74-106) mg/dL POC Glucose 128 H (70-99) mg/dL Lactic Acid (0.4-2.0) mmol/L Calcium (8.5-10.1) mg/dL Phosphorus (2.6-4.7) mg/dL Magnesium (1.8-2.4) mg/dL Total Bilirubin (0.2-1.0) mg/dL AST (15-37) IU/L ALT (14-63) IU/L Alkaline Phosphatase (46-116) U/L Troponin I 0.050 (0.000-0.056) ng/mL B-Natriuretic Peptide (<100) PG/ML Total Protein (6.4-8.2) g/dL Albumin (3.4-5.0) g/dL Globulin (2.6-4.0) g/dL Albumin/Globulin Ratio (0.9-1.6) SARS-CoV-2 RNA (MARITA) (NEGATIVE) 07/21/21 Range/Units 05:00 WBC (4.0-11.0) K/uL RBC (4.50-5.90) M/uL Hgb (13.0-17.0) g/dL Hct (38.0-50.0) % MCV (80.0-98.0) fL MCH (27.0-32.0) pg MCHC (31.0-37.0) g/dL RDW Std Deviation (28.0-62.0) fl RDW Coeff of Shakir (11.0-15.0) % Plt Count (150-400) K/uL MPV (7.40-12.00) fL Neut % (Auto) (48.0-80.0) % Lymph % (Auto) (16.0-40.0) % [place] % (Auto) (0.0-15.0) % Eos % (Auto) (0.0-7.0) % Baso % (Auto) (0.0-1.5) % Neut # (Auto) (1.4-5.7) K/uL Lymph # (Auto) (0.6-2.4) K/uL [place] # (Auto) (0.0-0.8) K/uL Eos # (Auto) (0.0-0.7) K/uL Baso # (Auto) (0.0-0.1) K/uL Nucleated RBC % /100WBC Nucleated RBCs # K/uL INR Sodium 140 (136-148) mmol/L Potassium 3.5 (3.5-5.1) mmol/L Chloride 101 (98-107) mmol/L Carbon Dioxide 30.3 (21.0-32.0) mmol/L BUN 7 (7.0-18.0) mg/dL Creatinine 1.1 (0.8-1.3) mg/dL Est Cr Clr Drug Dosing 67.67 mL/min Estimated GFR (MDRD) > 60.0 ml/min Glucose 119 H (74-106) mg/dL POC Glucose (70-99) mg/dL Lactic Acid (0.4-2.0) mmol/L Calcium 9.1 (8.5-10.1) mg/dL Phosphorus 3.0 (2.6-4.7) mg/dL Magnesium 2.1 (1.8-2.4) mg/dL Total Bilirubin (0.2-1.0) mg/dL AST (15-37) IU/L ALT (14-63) IU/L Alkaline Phosphatase (46-116) U/L Troponin I (0.000-0.056) ng/mL B-Natriuretic Peptide (<100) PG/ML Total Protein (6.4-8.2) g/dL Albumin (3.4-5.0) g/dL Globulin (2.6-4.0) g/dL Albumin/Globulin Ratio (0.9-1.6) SARS-CoV-2 RNA (MAR[facility]) (NEGATIVE) Med Orders - Current: Current Medications Acetaminophen (Acetaminophen 325 Mg Tab) 650 mg PO Q4H PRN PRN Reason: Pain (Mild 1-3)/fever Albuterol/Ipratropium (Albuterol/Ipratropium 3.0-0.5 Mg/3 Ml Neb Soln) 3 ml NEB Q4HRRT PRN PRN Reason: Shortness Of Breath/wheezing Last Admin: 07/21/21 02:46 Dose: 3 ml Documented by: Amlodipine Besylate (Amlodipine 5 Mg Tab) 10 mg PO DAILY [facility] Last Admin: 07/21/21 08:38 Dose: 10 mg Documented by: Heparin Sodium (Porcine) (Heparin Sodium 5,000 Units/Ml Vial) 5,000 units SUBCUT Q8H [facility] Last Admin: 07/21/21 05:56 Dose: 5,000 units Documented by: Lactated Ringer's (Ringers, Lactated) 1,000 mls @ 125 mls/hr IV ASDIRECTED [facility] Last Admin: 07/20/21 22:41 Dose: 125 mls/hr Documented by: Cefepime HCl 1 gm/ Premix 50 mls @ 100 mls/hr IV Q8H [facility] Last Admin: 07/21/21 10:29 Dose: 100 mls/hr Documented by: Vancomycin HCl 1 gm/ Sodium (Chloride) 250 mls @ 166 mls/hr IV Q8H [facility] Last Admin: 07/21/21 08:37 Dose: 166 mls/hr Documented by: Azithromycin 500 mg/ Sodium (Chloride) 250 mls @ 250 mls/hr IV Q24H [facility] Labetalol HCl (Labetalol 100 Mg/20 Ml Mdv) 20 mg IVPUSH Q4H PRN; Protocol PRN Reason: Hypertension Last Admin: 07/21/21 06:15 Dose: 20 mg Documented by: Lorazepam (Lorazepam 2 Mg/Ml Sdv) 1 mg IVPUSH Q6H PRN PRN Reason: Anxiety Last Admin: 07/21/21 02:39 Dose: 1 mg Documented by: Morphine Sulfate (Morphine 2 Mg/Ml Syringe) 1 mg IVPUSH Q3H PRN PRN Reason: Pain (severe 7-10) Stop: 07/21/21 20:44 Last Admin: 07/21/21 04:24 Dose: 1 mg Documented by: Ondansetron HCl (Ondansetron 4 Mg/2 Ml Sdv) 4 mg IVPUSH Q4H PRN PRN Reason: Nausea/Vomiting Sodium Chloride (Sodium Chloride 0.9% 10 Ml Syringe) 10 ml FLUSH ASDIRECTED PRN PRN Reason: Keep Vein Open Last Admin: 07/20/21 17:24 Dose: 10 ml Documented by: Sodium Chloride (Sodium Chloride 0.9% 2.5 Ml Syringe) 2.5 ml FLUSH ASDIRECTED PRN PRN Reason: Keep Vein Open Last Admin: 07/20/21 17:24 Dose: 2.5 ml Documented by: Tamsulosin HCl (Tamsulosin 0.4 Mg Cap.Er) 0.4 mg PO DAILY [facility] Last Admin: 07/21/21 08:38 Dose: 0.4 mg Documented by: Vancomycin HCl (Pharmacy To Dose - Vancomycin) 1 dose .XX ASDIRECTED [facility] Discontinued Medications Albuterol/Ipratropium (Albuterol/Ipratropium 3.0-0.5 Mg/3 Ml Neb Soln) 3 ml NEB ONETIME ONE Stop: 07/20/21 16:06 Last Admin: 07/20/21 16:24 Dose: 3 ml Documented by: Amlodipine Besylate (Amlodipine 5 Mg Tab) 10 mg PO ONETIME ONE Stop: 07/20/21 15:37 Last Admin: 07/20/21 15:47 Dose: 10 mg Documented by: Lactated Ringer's (Ringers, Lactated) 1,000 mls @ 999 mls/hr IV .BOLUS ONE Stop: 07/20/21 15:59 Last Admin: 07/20/21 15:20 Dose: 999 mls/hr Documented by: Cefepime HCl 2 gm/ Premix 50 mls @ 100 mls/hr IV ONETIME ONE Stop: 07/20/21 16:59 Last Admin: 07/20/21 17:24 Dose: 100 mls/hr Documented by: Vancomycin HCl 1 gm/ Sodium (Chloride) 250 mls @ 166 mls/hr IV ONETIME ONE Stop: 07/20/21 18:00 Last Admin: 07/20/21 17:24 Dose: 166 mls/hr Documented by: Cefepime HCl 2 gm/ Premix 50 mls @ 100 mls/hr IV ONETIME ONE Stop: 07/20/21 17:59 Last Admin: 07/20/21 17:53 Dose: Not Given Documented by: Iopamidol (Iopamidol 755 Mg/Ml 500 Ml Multipack Bottle) 100 ml IVPUSH ONETIME STA Stop: 07/20/21 17:53 Last Admin: 07/20/21 17:54 Dose: 100 ml Documented by: Lorazepam (Lorazepam 2 Mg/Ml Sdv) 1 mg IVPUSH ONETIME ONE Stop: 07/20/21 16:08 Last Admin: 07/20/21 16:08 Dose: 1 mg Documented by: Lorazepam (Lorazepam 2 Mg/Ml Sdv) Confirm Administered Dose 2 mg .ROUTE .STK-MED ONE Stop: 07/20/21 16:08 Last Admin: 07/20/21 16:26 Dose: Not Given Documented by: - Exam Quality Assessment: Supplemental Oxygen (7 l NC HF), DVT Prophylaxis General: Alert, Oriented, Cooperative, Mild Distress (dyspnea) Lungs: Decreased Breath Sounds. No: Normal Respiratory Effort (dyspnea) Cardiovascular: Regular Rate, Regular Rhythm GI/Abdominal Exam: Normal Bowel Sounds, Soft, Non-Tender Extremities: Normal Inspection, Normal Range of Motion, Non-Tender, No Pedal Edema Neurological: No New Focal Deficit Psy/Mental Status: Alert, Normal Affect, Normal Mood - Patient Data Lab Results Last 24 hrs: Laboratory Results - last 24 hr 07/20/21 07/20/21 07/20/21 Range/Units 15:05 15:05 15:05 WBC 14.22 H (4.0-11.0) K/uL RBC 5.23 (4.50-5.90) M/uL Hgb 16.3 (13.0-17.0) g/dL Hct 47.4 (38.0-50.0) % MCV 90.6 (80.0-98.0) fL MCH 31.2 (27.0-32.0) pg MCHC 34.4 (31.0-37.0) g/dL RDW Std Deviation 43.4 (28.0-62.0) fl RDW Coeff of Shakir 13 (11.0-15.0) % Plt Count 261 (150-400) K/uL MPV 11.70 (7.40-12.00) fL Neut % (Auto) 83.6 H (48.0-80.0) % Lymph % (Auto) 7.9 L (16.0-40.0) % [place] % (Auto) 7.8 (0.0-15.0) % Eos % (Auto) 0.6 (0.0-7.0) % Baso % (Auto) 0.1 (0.0-1.5) % Neut # (Auto) 11.9 H (1.4-5.7) K/uL Lymph # (Auto) 1.1 (0.6-2.4) K/uL [place] # (Auto) 1.1 H (0.0-0.8) K/uL Eos # (Auto) 0.1 (0.0-0.7) K/uL Baso # (Auto) 0.0 (0.0-0.1) K/uL Nucleated RBC % 0.0 /100WBC Nucleated RBCs # 0 K/uL INR Sodium 142 (136-148) mmol/L Potassium 3.6 (3.5-5.1) mmol/L Chloride 104 (98-107) mmol/L Carbon Dioxide 27.9 (21.0-32.0) mmol/L BUN 8 (7.0-18.0) mg/dL Creatinine 1.0 (0.8-1.3) mg/dL Est Cr Clr Drug Dosing 71.29 mL/min Estimated GFR (MDRD) > 60.0 ml/min Glucose 102 (74-106) mg/dL POC Glucose (70-99) mg/dL Lactic Acid 1.0 (0.4-2.0) mmol/L Calcium 8.4 L (8.5-10.1) mg/dL Phosphorus (2.6-4.7) mg/dL Magnesium (1.8-2.4) mg/dL Total Bilirubin 0.5 (0.2-1.0) mg/dL AST 21 (15-37) IU/L ALT 27 (14-63) IU/L Alkaline Phosphatase 124 H (46-116) U/L Troponin I < 0.050 (0.000-0.056) ng/mL B-Natriuretic Peptide (<100) PG/ML Total Protein 7.3 (6.4-8.2) g/dL Albumin 3.5 (3.4-5.0) g/dL Globulin 3.8 (2.6-4.0) g/dL Albumin/Globulin Ratio 0.9 (0.9-1.6) SARS-CoV-2 RNA ([facility]) (NEGATIVE) 07/20/21 07/20/21 07/20/21 Range/Units 15:05 15:05 15:18 WBC (4.0-11.0) K/uL RBC (4.50-5.90) M/uL Hgb (13.0-17.0) g/dL Hct (38.0-50.0) % MCV (80.0-98.0) fL MCH (27.0-32.0) pg MCHC (31.0-37.0) g/dL RDW Std Deviation (28.0-62.0) fl RDW Coeff of Shakir (11.0-15.0) % Plt Count (150-400) K/uL MPV (7.40-12.00) fL Neut % (Auto) (48.0-80.0) % Lymph % (Auto) (16.0-40.0) % [place] % (Auto) (0.0-15.0) % Eos % (Auto) (0.0-7.0) % Baso % (Auto) (0.0-1.5) % Neut # (Auto) (1.4-5.7) K/uL Lymph # (Auto) (0.6-2.4) K/uL [place] # (Auto) (0.0-0.8) K/uL Eos # (Auto) (0.0-0.7) K/uL Baso # (Auto) (0.0-0.1) K/uL Nucleated RBC % /100WBC Nucleated RBCs # K/uL INR 1.06 Sodium (136-148) mmol/L Potassium (3.5-5.1) mmol/L Chloride (98-107) mmol/L Carbon Dioxide (21.0-32.0) mmol/L BUN (7.0-18.0) mg/dL Creatinine (0.8-1.3) mg/dL Est Cr Clr Drug Dosing mL/min Estimated GFR (MDRD) ml/min Glucose (74-106) mg/dL POC Glucose (70-99) mg/dL Lactic Acid (0.4-2.0) mmol/L Calcium (8.5-10.1) mg/dL Phosphorus (2.6-4.7) mg/dL Magnesium (1.8-2.4) mg/dL Total Bilirubin (0.2-1.0) mg/dL AST (15-37) IU/L ALT (14-63) IU/L Alkaline Phosphatase (46-116) U/L Troponin I (0.000-0.056) ng/mL B-Natriuretic Peptide 291 H (<100) PG/ML Total Protein (6.4-8.2) g/dL Albumin (3.4-5.0) g/dL Globulin (2.6-4.0) g/dL Albumin/Globulin Ratio (0.9-1.6) SARS-CoV-2 RNA ([facility]) NEGATIVE (NEGATIVE) 07/20/21 07/20/21 07/21/21 Range/Units 15:45 18:16 05:00 WBC 14.97 H (4.0-11.0) K/uL RBC 5.60 (4.50-5.90) M/uL Hgb 17.6 H (13.0-17.0) g/dL Hct 50.9 H (38.0-50.0) % MCV 90.9 (80.0-98.0) fL MCH 31.4 (27.0-32.0) pg MCHC 34.6 (31.0-37.0) g/dL RDW Std Deviation 44.3 (28.0-62.0) fl RDW Coeff of Shakir 13 (11.0-15.0) % Plt Count 256 (150-400) K/uL MPV 13.20 H (7.40-12.00) fL Neut % (Auto) 83.2 H (48.0-80.0) % Lymph % (Auto) 8.1 L (16.0-40.0) % [place] % (Auto) 8.4 (0.0-15.0) % Eos % (Auto) 0.2 (0.0-7.0) % Baso % (Auto) 0.1 (0.0-1.5) % Neut # (Auto) 12.5 H (1.4-5.7) K/uL Lymph # (Auto) 1.2 (0.6-2.4) K/uL [place] # (Auto) 1.3 H (0.0-0.8) K/uL Eos # (Auto) 0.0 (0.0-0.7) K/uL Baso # (Auto) 0.0 (0.0-0.1) K/uL Nucleated RBC % 0.0 /100WBC Nucleated RBCs # 0 K/uL INR Sodium (136-148) mmol/L Potassium (3.5-5.1) mmol/L Chloride (98-107) mmol/L Carbon Dioxide (21.0-32.0) mmol/L BUN (7.0-18.0) mg/dL Creatinine (0.8-1.3) mg/dL Est Cr Clr Drug Dosing mL/min Estimated GFR (MDRD) ml/min Glucose (74-106) mg/dL POC Glucose 128 H (70-99) mg/dL Lactic Acid (0.4-2.0) mmol/L Calcium (8.5-10.1) mg/dL Phosphorus (2.6-4.7) mg/dL Magnesium (1.8-2.4) mg/dL Total Bilirubin (0.2-1.0) mg/dL AST (15-37) IU/L ALT (14-63) IU/L Alkaline Phosphatase (46-116) U/L Troponin I 0.050 (0.000-0.056) ng/mL B-Natriuretic Peptide (<100) PG/ML Total Protein (6.4-8.2) g/dL Albumin (3.4-5.0) g/dL Globulin (2.6-4.0) g/dL Albumin/Globulin Ratio (0.9-1.6) SARS-CoV-2 RNA ([facility]) (NEGATIVE) 07/21/21 Range/Units 05:00 WBC (4.0-11.0) K/uL RBC (4.50-5.90) M/uL Hgb (13.0-17.0) g/dL Hct (38.0-50.0) % MCV (80.0-98.0) fL MCH (27.0-32.0) pg MCHC (31.0-37.0) g/dL RDW Std Deviation (28.0-62.0) fl RDW Coeff of Shakir (11.0-15.0) % Plt Count (150-400) K/uL MPV (7.40-12.00) fL Neut % (Auto) (48.0-80.0) % Lymph % (Auto) (16.0-40.0) % [place] % (Auto) (0.0-15.0) % Eos % (Auto) (0.0-7.0) % Baso % (Auto) (0.0-1.5) % Neut # (Auto) (1.4-5.7) K/uL Lymph # (Auto) (0.6-2.4) K/uL [place] # (Auto) (0.0-0.8) K/uL Eos # (Auto) (0.0-0.7) K/uL Baso # (Auto) (0.0-0.1) K/uL Nucleated RBC % /100WBC Nucleated RBCs # K/uL INR Sodium 140 (136-148) mmol/L Potassium 3.5 (3.5-5.1) mmol/L Chloride 101 (98-107) mmol/L Carbon Dioxide 30.3 (21.0-32.0) mmol/L BUN 7 (7.0-18.0) mg/dL Creatinine 1.1 (0.8-1.3) mg/dL Est Cr Clr Drug Dosing 67.67 mL/min Estimated GFR (MDRD) > 60.0 ml/min Glucose 119 H (74-106) mg/dL POC Glucose (70-99) mg/dL Lactic Acid (0.4-2.0) mmol/L Calcium 9.1 (8.5-10.1) mg/dL Phosphorus 3.0 (2.6-4.7) mg/dL Magnesium 2.1 (1.8-2.4) mg/dL Total Bilirubin (0.2-1.0) mg/dL AST (15-37) IU/L ALT (14-63) IU/L Alkaline Phosphatase (46-116) U/L Troponin I (0.000-0.056) ng/mL B-Natriuretic Peptide (<100) PG/ML Total Protein (6.4-8.2) g/dL Albumin (3.4-5.0) g/dL Globulin (2.6-4.0) g/dL Albumin/Globulin Ratio (0.9-1.6) SARS-CoV-2 RNA ([facility]) (NEGATIVE) Result Diagrams: 07/21/21 05:00 07/21/21 05:00 Sepsis Event Note - Evaluation Sepsis Screening Result: Possible Sepsis Risk - Focused Exam Vital Signs: Vital Signs Temp Pulse Resp BP BP Pulse Ox 07/21/21 08:38 153/115 H 07/21/21 08:00 97.6 F 88 26 H 153/115 H 96 07/21/21 06:50 146/107 H 07/21/21 05:50 104 H 38 H 181/104 H 97 07/21/21 04:10 97.3 F 113 H 43 H 188/110 H 96 07/21/21 00:43 113 H 38 H 184/114 H 95 - Problem List & Annotations (1) Acute respiratory failure with hypoxia SNOMED Code(s): 80361999, 993248229 Code(s): J96.01 - ACUTE RESPIRATORY FAILURE WITH HYPOXIA Status: Acute Current Visit: Yes (2) CAP (community acquired pneumonia) SNOMED Code(s): 361079431 Code(s): J18.9 - PNEUMONIA, UNSPECIFIED ORGANISM Status: Acute Current Visit: Yes (3) HTN (hypertension) SNOMED Code(s): 40514217 Code(s): I10 - ESSENTIAL (PRIMARY) HYPERTENSION Status: Chronic Current Visit: Yes (4) ALEXEY (obstructive sleep apnea) SNOMED Code(s): 49171256 Code(s): G47.33 - OBSTRUCTIVE SLEEP APNEA (ADULT) (PEDIATRIC) Status: Chronic Current Visit: Yes - Problem List Review Problem List Initiated/Reviewed/Updated: Yes - My Orders Last 24 Hours: My Active Orders 07/21/21 11:00 Azithromycin [Zithromax] 500 mg Sodium Chloride 0.9% [Normal Saline (AdvBag)] 250 ml IV Q24H - Plan Plan:: 58-year-old male admitted for acute hypoxic respiratory failure possible viral pneumonia or atypical CAP 1. Acute hypoxic restaurant failure/possible viral pneumonia/possible atypical CAP -Continue oxygen via high flow nasal cannula to keep sats greater than 90% wean as possible -Continue azithromycin, cefepime and vancomycin -Retest Covid this evening -DuoNebs for dyspnea -Robitussin for cough -Encourage pulmonary toileting including I-S and coughing and deep breathing -Blood cultures pending - send legionella/strep urine 2. Hypertension/ALEXEY -Resume amlodipine -Labetalol as needed for blood pressure greater than 180 systolically VTE prophylaxis: Heparin CODE STATUS: Full code Dispo: 2 to 3 days pending improvement.
[2021-07-21] MEDS: Azithromycin 500 MG in Sodium Chloride 0.9% 250 ML IV SCH (11:16)
[2021-07-21] MEDS: Lactated Ringers 1,000 ML IV SCH ×2 (12:39→23:25)
[2021-07-21] MEDS ORDERED: Potassium Chloride 20 MEQ Tab.ER PO ONE (16:31)
[2021-07-22] MEDS: Cefepime 1 GM in Premix Bag 1 BAG IV SCH ×3 (02:54→17:18)
[2021-07-22] MEDS: Heparin Sodium 5,000 Units/ML Vial SUBCUT SCH ×3 (05:19→21:48)
[2021-07-22 05:57] LABS: BLOOD UREA NITROGEN,BUN 9 mg/dL (7.0-18.0); CARBON DIOXIDE,CO2 32.1 mmol/L (21.0-32.0); CHLORIDE,CL 106 mmol/L (98-107); GLUCOSE RANDOM 96 mg/dL (74-106); POTASSIUM,K 4.1 mmol/L (3.5-5.1); SODIUM,NA 141 mmol/L (136-148)
[2021-07-22] MEDS: Albuterol/Ipratropium 4 GM Inhalation Spray INH SCH ×5 (06:16→21:50)
[2021-07-22] MEDS: amLODIPine 5 MG Tab PO SCH (09:15)
[2021-07-22] MEDS: Tamsulosin 0.4 MG Cap.ER PO SCH (09:15)
[2021-07-22] MEDS: Lactated Ringers 1,000 ML IV SCH ×2 (11:44→22:50)
[2021-07-22] MEDS: Azithromycin 500 MG in Sodium Chloride 0.9% 250 ML IV SCH (12:49)
--- NOTE | 2021-07-22 14:56 | PCM.PN ---
- General Info Date of Service: 07/22/21 Admission Dx/Problem (Free Text): Admission Diagnosis/Problem Admission Diagnosis/Problem acute hypoxic respiratory failure, CAP Subjective Update: Reports he is feeling improved from yesterday , having his breakfast, denies any chest pain. Reports he is coughing no significant amount of phlegm. Oxygen requirement has also improved from 7 L to 5 L. Functional Status: Reports: Pain Controlled, Tolerating Diet, Ambulating, Urinating - Review of Systems General: Reports: Weakness. Denies: Fever, Fatigue, Malaise Pulmonary: Reports: Cough. Denies: Shortness of Breath, Pleuritic Chest Pain Cardiovascular: Reports: Dyspnea on Exertion. Denies: Chest Pain, Palpitations, Orthopnea Gastrointestinal: Denies: Abdominal Pain, Constipation, Decreased Appetite Genitourinary: Denies: Dysuria, Frequency, Burning Musculoskeletal: Denies: Neck Pain, Shoulder Pain, Arm Pain Skin: Denies: Cyanosis, Jaundice, Mottled - Patient Data Vitals - Most Recent: Last Vital Signs Temp 36.8 C 07/22/21 07:41 Pulse 89 07/22/21 07:41 Resp 20 07/22/21 11:00 BP 157/98 H 07/22/21 09:15 Pulse Ox 94 L 07/22/21 11:00 Weight - Most Recent: 73.255 kg I&O - Last 24 Hours: Intake & Output 07/21/21 07/22/21 07/22/21 22:59 06:59 14:59 Intake Total 1999 4194 Output Total 2100 1400 Balance -100 2794 Lab Results Last 24 Hours: Laboratory Results - last 24 hr 07/21/21 07/21/21 07/22/21 Range/Units 15:30 16:00 05:05 WBC 8.29 (4.0-11.0) K/uL RBC 4.98 (4.50-5.90) M/uL Hgb 15.5 (13.0-17.0) g/dL Hct 45.7 (38.0-50.0) % MCV 91.8 (80.0-98.0) fL MCH 31.1 (27.0-32.0) pg MCHC 33.9 (31.0-37.0) g/dL RDW Std Deviation 44.2 (28.0-62.0) fl RDW Coeff of Shakir 13 (11.0-15.0) % Plt Count 247 (150-400) K/uL MPV 12.30 H (7.40-12.00) fL Neut % (Auto) 65.1 (48.0-80.0) % Lymph % (Auto) 20.6 (16.0-40.0) % [place] % (Auto) 13.0 (0.0-15.0) % Eos % (Auto) 1.1 (0.0-7.0) % Baso % (Auto) 0.2 (0.0-1.5) % Neut # (Auto) 5.4 (1.4-5.7) K/uL Lymph # (Auto) 1.7 (0.6-2.4) K/uL [place] # (Auto) 1.1 H (0.0-0.8) K/uL Eos # (Auto) 0.1 (0.0-0.7) K/uL Baso # (Auto) 0.0 (0.0-0.1) K/uL Nucleated RBC % 0.0 /100WBC Nucleated RBCs # 0 K/uL Sodium (136-148) mmol/L Potassium (3.5-5.1) mmol/L Chloride (98-107) mmol/L Carbon Dioxide (21.0-32.0) mmol/L BUN (7.0-18.0) mg/dL Creatinine (0.8-1.3) mg/dL Est Cr Clr Drug Dosing mL/min Estimated GFR (MDRD) ml/min Glucose (74-106) mg/dL Calcium (8.5-10.1) mg/dL Magnesium (1.8-2.4) mg/dL Vancomycin Trough 11.3 H (5.0-10.0) ug/mL SARS-CoV-2 RNA (MARITA) NEGATIVE (NEGATIVE) 07/22/21 Range/Units 05:05 WBC (4.0-11.0) K/uL RBC (4.50-5.90) M/uL Hgb (13.0-17.0) g/dL Hct (38.0-50.0) % MCV (80.0-98.0) fL MCH (27.0-32.0) pg MCHC (31.0-37.0) g/dL RDW Std Deviation (28.0-62.0) fl RDW Coeff of Shakir (11.0-15.0) % Plt Count (150-400) K/uL MPV (7.40-12.00) fL Neut % (Auto) (48.0-80.0) % Lymph % (Auto) (16.0-40.0) % [place] % (Auto) (0.0-15.0) % Eos % (Auto) (0.0-7.0) % Baso % (Auto) (0.0-1.5) % Neut # (Auto) (1.4-5.7) K/uL Lymph # (Auto) (0.6-2.4) K/uL [place] # (Auto) (0.0-0.8) K/uL Eos # (Auto) (0.0-0.7) K/uL Baso # (Auto) (0.0-0.1) K/uL Nucleated RBC % /100WBC Nucleated RBCs # K/uL Sodium 141 (136-148) mmol/L Potassium 4.1 (3.5-5.1) mmol/L Chloride 106 (98-107) mmol/L Carbon Dioxide 32.1 H (21.0-32.0) mmol/L BUN 9 (7.0-18.0) mg/dL Creatinine 1.1 (0.8-1.3) mg/dL Est Cr Clr Drug Dosing 67.67 mL/min Estimated GFR (MDRD) > 60.0 ml/min Glucose 96 (74-106) mg/dL Calcium 8.6 (8.5-10.1) mg/dL Magnesium 2.1 (1.8-2.4) mg/dL Vancomycin Trough (5.0-10.0) ug/mL SARS-CoV-2 RNA (MARITA) (NEGATIVE) Juve Results Last 24 Hours: Microbiology 07/20/21 16:56 Aerobic Blood Culture - Preliminary Blood - Venous - Lab Draw NO GROWTH AFTER 1 DAY Anaerobic Blood Culture - Preliminary NO GROWTH AFTER 1 DAY 07/20/21 15:05 Aerobic Blood Culture - Preliminary Blood - Venous NO GROWTH AFTER 1 DAY Anaerobic Blood Culture - Preliminary NO GROWTH AFTER 1 DAY Med Orders - Current: Current Medications Acetaminophen (Acetaminophen 325 Mg Tab) 650 mg PO Q4H PRN PRN Reason: Pain (Mild 1-3)/fever Last Admin: 07/22/21 10:40 Dose: 650 mg Documented by: Albuterol/Ipratropium (Albuterol/Ipratropium 3.0-0.5 Mg/3 Ml Neb Soln) 3 ml NEB Q4HRRT PRN PRN Reason: Shortness Of Breath/wheezing Last Admin: 07/21/21 02:46 Dose: 3 ml Documented by: Albuterol/Ipratropium (Albuterol/Ipratropium 4 Gm Inhalation [place]) 0 gm INH Q4HRRT [facility] Last Admin: 07/22/21 13:55 Dose: 1 puff Documented by: Amlodipine Besylate (Amlodipine 5 Mg Tab) 10 mg PO DAILY [facility] Last Admin: 07/22/21 09:15 Dose: 10 mg Documented by: Heparin Sodium (Porcine) (Heparin Sodium 5,000 Units/Ml Vial) 5,000 units SUBCUT Q8H [facility] Last Admin: 07/22/21 12:50 Dose: 5,000 units Documented by: Lactated Ringer's (Ringers, Lactated) 1,000 mls @ 125 mls/hr IV ASDIRECTED [facility] Last Admin: 07/22/21 11:44 Dose: 125 mls/hr Documented by: Cefepime HCl 1 gm/ Premix 50 mls @ 100 mls/hr IV Q8H [facility] Last Admin: 07/22/21 11:41 Dose: 100 mls/hr Documented by: Azithromycin 500 mg/ Sodium (Chloride) 250 mls @ 250 mls/hr IV Q24H [facility] Last Admin: 07/22/21 12:49 Dose: 250 mls/hr Documented by: Vancomycin HCl 1.25 gm/ Sodium (Chloride) 250 mls @ 165 mls/hr IV Q8H [facility] Last Admin: 07/22/21 09:16 Dose: 165 mls/hr Documented by: Labetalol HCl (Labetalol 100 Mg/20 Ml Mdv) 20 mg IVPUSH Q4H PRN PRN Reason: Hypertension Last Admin: 07/21/21 06:15 Dose: 20 mg Documented by: Lorazepam (Lorazepam 2 Mg/Ml Sdv) 1 mg IVPUSH Q6H PRN PRN Reason: Anxiety Last Admin: 07/21/21 02:39 Dose: 1 mg Documented by: Ondansetron HCl (Ondansetron 4 Mg/2 Ml Sdv) 4 mg IVPUSH Q4H PRN PRN Reason: Nausea/Vomiting Sodium Chloride (Sodium Chloride 0.9% 10 Ml Syringe) 10 ml FLUSH ASDIRECTED PRN PRN Reason: Keep Vein Open Last Admin: 07/20/21 17:24 Dose: 10 ml Documented by: Sodium Chloride (Sodium Chloride 0.9% 2.5 Ml Syringe) 2.5 ml FLUSH ASDIRECTED PRN PRN Reason: Keep Vein Open Last Admin: 07/20/21 17:24 Dose: 2.5 ml Documented by: Tamsulosin HCl (Tamsulosin 0.4 Mg Cap.Er) 0.4 mg PO DAILY [facility] Last Admin: 07/22/21 09:15 Dose: 0.4 mg Documented by: Vancomycin HCl (Pharmacy To Dose - Vancomycin) 1 dose .XX ASDIRECTED [facility] Discontinued Medications Albuterol/Ipratropium (Albuterol/Ipratropium 3.0-0.5 Mg/3 Ml Neb Soln) 3 ml NEB ONETIME ONE Stop: 07/20/21 16:06 Last Admin: 07/20/21 16:24 Dose: 3 ml Documented by: Albuterol/Ipratropium (Albuterol/Ipratropium 4 Gm Inhalation [place]) 0 gm INH Q4H [facility] Last Admin: 07/22/21 09:59 Dose: 1 puff Documented by: Amlodipine Besylate (Amlodipine 5 Mg Tab) 10 mg PO ONETIME ONE Stop: 07/20/21 15:37 Last Admin: 07/20/21 15:47 Dose: 10 mg Documented by: Lactated Ringer's (Ringers, Lactated) 1,000 mls @ 999 mls/hr IV .BOLUS ONE Stop: 07/20/21 15:59 Last Admin: 07/20/21 15:20 Dose: 999 mls/hr Documented by: Cefepime HCl 2 gm/ Premix 50 mls @ 100 mls/hr IV ONETIME ONE Stop: 07/20/21 16:59 Last Admin: 07/20/21 17:24 Dose: 100 mls/hr Documented by: Vancomycin HCl 1 gm/ Sodium (Chloride) 250 mls @ 166 mls/hr IV ONETIME ONE Stop: 07/20/21 18:00 Last Admin: 07/20/21 17:24 Dose: 166 mls/hr Documented by: Cefepime HCl 2 gm/ Premix 50 mls @ 100 mls/hr IV ONETIME ONE Stop: 07/20/21 17:59 Last Admin: 07/20/21 17:53 Dose: Not Given Documented by: Vancomycin HCl 1 gm/ Sodium (Chloride) 250 mls @ 166 mls/hr IV Q8H [facility] Last Admin: 07/21/21 18:22 Dose: Not Given Documented by: Iopamidol (Iopamidol 755 Mg/Ml 500 Ml Multipack Bottle) 100 ml IVPUSH ONETIME STA Stop: 07/20/21 17:53 Last Admin: 07/20/21 17:54 Dose: 100 ml Documented by: Lorazepam (Lorazepam 2 Mg/Ml Sdv) 1 mg IVPUSH ONETIME ONE Stop: 07/20/21 16:08 Last Admin: 07/20/21 16:08 Dose: 1 mg Documented by: Lorazepam (Lorazepam 2 Mg/Ml Sdv) Confirm Administered Dose 2 mg .ROUTE .STK-MED ONE Stop: 07/20/21 16:08 Last Admin: 07/20/21 16:26 Dose: Not Given Documented by: Morphine Sulfate (Morphine 2 Mg/Ml Syringe) 1 mg IVPUSH Q3H PRN PRN Reason: Pain (severe 7-10) Stop: 07/21/21 20:44 Last Admin: 07/21/21 04:24 Dose: 1 mg Documented by: Potassium Chloride (Potassium Chloride 20 Meq Tab.Er) 40 meq PO ONETIME ONE Stop: 07/21/21 16:32 Last Admin: 07/21/21 17:15 Dose: 40 meq Documented by: - Exam Quality Assessment: Supplemental Oxygen General: Alert, Oriented Lungs: Normal Respiratory Effort, Decreased Breath Sounds, Rales, Wheezing Cardiovascular: Regular Rate, Regular Rhythm GI/Abdominal Exam: Normal Bowel Sounds, Soft, Non-Tender Extremities: Normal Inspection, Normal Range of Motion, Non-Tender - Patient Data Lab Results Last 24 hrs: Laboratory Results - last 24 hr 07/21/21 07/21/21 07/22/21 Range/Units 15:30 16:00 05:05 WBC 8.29 (4.0-11.0) K/uL RBC 4.98 (4.50-5.90) M/uL Hgb 15.5 (13.0-17.0) g/dL Hct 45.7 (38.0-50.0) % MCV 91.8 (80.0-98.0) fL MCH 31.1 (27.0-32.0) pg MCHC 33.9 (31.0-37.0) g/dL RDW Std Deviation 44.2 (28.0-62.0) fl RDW Coeff of Shakir 13 (11.0-15.0) % Plt Count 247 (150-400) K/uL MPV 12.30 H (7.40-12.00) fL Neut % (Auto) 65.1 (48.0-80.0) % Lymph % (Auto) 20.6 (16.0-40.0) % [place] % (Auto) 13.0 (0.0-15.0) % Eos % (Auto) 1.1 (0.0-7.0) % Baso % (Auto) 0.2 (0.0-1.5) % Neut # (Auto) 5.4 (1.4-5.7) K/uL Lymph # (Auto) 1.7 (0.6-2.4) K/uL [place] # (Auto) 1.1 H (0.0-0.8) K/uL Eos # (Auto) 0.1 (0.0-0.7) K/uL Baso # (Auto) 0.0 (0.0-0.1) K/uL Nucleated RBC % 0.0 /100WBC Nucleated RBCs # 0 K/uL Sodium (136-148) mmol/L Potassium (3.5-5.1) mmol/L Chloride (98-107) mmol/L Carbon Dioxide (21.0-32.0) mmol/L BUN (7.0-18.0) mg/dL Creatinine (0.8-1.3) mg/dL Est Cr Clr Drug Dosing mL/min Estimated GFR (MDRD) ml/min Glucose (74-106) mg/dL Calcium (8.5-10.1) mg/dL Magnesium (1.8-2.4) mg/dL Vancomycin Trough 11.3 H (5.0-10.0) ug/mL SARS-CoV-2 RNA (MARITA) NEGATIVE (NEGATIVE) 07/22/21 Range/Units 05:05 WBC (4.0-11.0) K/uL RBC (4.50-5.90) M/uL Hgb (13.0-17.0) g/dL Hct (38.0-50.0) % MCV (80.0-98.0) fL MCH (27.0-32.0) pg MCHC (31.0-37.0) g/dL RDW Std Deviation (28.0-62.0) fl RDW Coeff of Shakir (11.0-15.0) % Plt Count (150-400) K/uL MPV (7.40-12.00) fL Neut % (Auto) (48.0-80.0) % Lymph % (Auto) (16.0-40.0) % [place] % (Auto) (0.0-15.0) % Eos % (Auto) (0.0-7.0) % Baso % (Auto) (0.0-1.5) % Neut # (Auto) (1.4-5.7) K/uL Lymph # (Auto) (0.6-2.4) K/uL [place] # (Auto) (0.0-0.8) K/uL Eos # (Auto) (0.0-0.7) K/uL Baso # (Auto) (0.0-0.1) K/uL Nucleated RBC % /100WBC Nucleated RBCs # K/uL Sodium 141 (136-148) mmol/L Potassium 4.1 (3.5-5.1) mmol/L Chloride 106 (98-107) mmol/L Carbon Dioxide 32.1 H (21.0-32.0) mmol/L BUN 9 (7.0-18.0) mg/dL Creatinine 1.1 (0.8-1.3) mg/dL Est Cr Clr Drug Dosing 67.67 mL/min Estimated GFR (MDRD) > 60.0 ml/min Glucose 96 (74-106) mg/dL Calcium 8.6 (8.5-10.1) mg/dL Magnesium 2.1 (1.8-2.4) mg/dL Vancomycin Trough (5.0-10.0) ug/mL SARS-CoV-2 RNA (MARITA) (NEGATIVE) Result Diagrams: 07/22/21 05:05 07/22/21 05:05 Juve Results Last 24 hrs: Microbiology 07/20/21 16:56 Aerobic Blood Culture - Preliminary Blood - Venous - Lab Draw NO GROWTH AFTER 1 DAY Anaerobic Blood Culture - Preliminary NO GROWTH AFTER 1 DAY 07/20/21 15:05 Aerobic Blood Culture - Preliminary Blood - Venous NO GROWTH AFTER 1 DAY Anaerobic Blood Culture - Preliminary NO GROWTH AFTER 1 DAY Sepsis Event Note - Evaluation Sepsis Screening Result: No Definite Risk - Focused Exam Vital Signs: Vital Signs Temp Pulse Resp BP BP Pulse Ox 07/22/21 11:00 20 94 L 07/22/21 09:15 157/98 H 07/22/21 07:41 36.8 C 89 157/98 H 98 07/22/21 05:21 36.8 C 74 20 138/99 H 94 L - Problem List & Annotations (1) HTN (hypertension) SNOMED Code(s): 46349814 Code(s): I10 - ESSENTIAL (PRIMARY) HYPERTENSION Status: Chronic Current Visit: Yes (2) Hypoxia SNOMED Code(s): 643992584 Code(s): R09.02 - HYPOXEMIA Status: Acute Current Visit: Yes (3) Pneumonia SNOMED Code(s): 979164060 Code(s): J18.9 - PNEUMONIA, UNSPECIFIED ORGANISM Status: Acute Current Visit: Yes - Problem List Review Problem List Initiated/Reviewed/Updated: Yes - My Orders Last 24 Hours: My Active Orders 07/21/21 14:51 CPAP Adult [RT BiPAP/CPAP] [RC] ASDIRECTED 07/21/21 16:55 Vancomycin 1.25 gm Sodium Chloride 0.9% [Normal Saline (AdvBag)] 250 ml IV Q8H 07/22/21 00:51 RT Post Treatment Assessment [RC] Click to Edit RT Pre-Treatment Assessment [RC] Click to Edit 07/22/21 14:00 Albuterol/Ipratropium [Combivent Respimat] 0 gm INH Q4HRRT - Plan Plan:: 58-year-old male admitted for acute hypoxic respiratory failure possible viral pneumonia or atypical CAP 1. Acute hypoxic restaurant failure/possible viral pneumonia/possible atypical CAP -Continue oxygen via low pressure system nasal cannula currently requiring 5 L -Leukocytosis has resolved -Continue azithromycin, cefepime and vancomycin -Retest Covid was negative -DuoNebs for dyspnea -Robitussin for cough -Encourage pulmonary toileting including I-S and coughing and deep breathing -Blood cultures pending - send legionella/strep urine 2. Hypertension/ALEXEY -Resume amlodipine -Labetalol as needed for blood pressure greater than 180 systolically VTE prophylaxis: Heparin CODE STATUS: Full code Dispo: 2 to 3 days pending improvement.
[2021-07-23] MEDS: Cefepime 1 GM in Premix Bag 1 BAG IV SCH ×3 (02:38→17:17)
[2021-07-23] MEDS: Albuterol/Ipratropium 4 GM Inhalation Spray INH SCH ×6 (02:41→21:51)
[2021-07-23 05:59] LABS: BLOOD UREA NITROGEN,BUN 7 mg/dL (7.0-18.0); CARBON DIOXIDE,CO2 28.9 mmol/L (21.0-32.0); CHLORIDE,CL 106 mmol/L (98-107); GLUCOSE RANDOM 98 mg/dL (74-106); POTASSIUM,K 3.7 mmol/L (3.5-5.1); SODIUM,NA 140 mmol/L (136-148)
[2021-07-23] MEDS: Metoprolol Tartrate 25 MG Tab PO SCH ×2 (06:05→17:14)
[2021-07-23] MEDS: Heparin Sodium 5,000 Units/ML Vial SUBCUT SCH ×3 (06:07→21:29)
--- NOTE | 2021-07-23 07:59 | PCM.PN ---
- General Info Date of Service: 07/23/21 Admission Dx/Problem (Free Text): Admission Diagnosis/Problem Admission Diagnosis/Problem acute hypoxic respiratory failure, CAP Subjective Update: Feeling much improved today. Reports shortness of breath has improved cough is improved no chest pain. He is eating and drinking well. Denies any palpitations. Oxygen requirements down from 5L to 3 L continuously Functional Status: Reports: Pain Controlled, Tolerating Diet, Ambulating, Urinating - Review of Systems General: Reports: No Symptoms. Denies: Fever, Fatigue HEENT: Reports: Sinus Congestion. Denies: Headaches, Sore Throat Pulmonary: Reports: Shortness of Breath (Steadily improving), Cough. Denies: Sputum, Wheezing Cardiovascular: Reports: Dyspnea on Exertion (Intermittently). Denies: Chest Pain, Palpitations, Lightheadedness Gastrointestinal: Reports: No Symptoms. Denies: Abdominal Pain, Nausea, Vomiting Genitourinary: Reports: No Symptoms. Denies: Dysuria, Frequency, Burning Musculoskeletal: Reports: No Symptoms. Denies: Neck Pain Skin: Reports: No Symptoms Neurological: Reports: No Symptoms Psychiatric: Reports: No Symptoms - Patient Data Vitals - Most Recent: Last Vital Signs Temp 97.4 F 07/23/21 05:45 Pulse 75 07/23/21 06:05 Resp 19 07/23/21 06:04 BP 154/96 H 07/23/21 06:05 Pulse Ox 94 L 07/23/21 06:04 Weight - Most Recent: 73.255 kg I&O - Last 24 Hours: Intake & Output 07/22/21 07/23/21 07/23/21 22:59 06:59 14:59 Intake Total 860 800 Output Total 800 1400 Balance 60 -600 Lab Results Last 24 Hours: Laboratory Results - last 24 hr 07/22/21 07/23/21 07/23/21 Range/Units 16:50 05:30 05:30 WBC 6.74 (4.0-11.0) K/uL RBC 4.58 (4.50-5.90) M/uL Hgb 14.0 (13.0-17.0) g/dL Hct 41.9 (38.0-50.0) % MCV 91.5 (80.0-98.0) fL MCH 30.6 (27.0-32.0) pg MCHC 33.4 (31.0-37.0) g/dL RDW Std Deviation 44.5 (28.0-62.0) fl RDW Coeff of Shakir 13 (11.0-15.0) % Plt Count 236 (150-400) K/uL MPV 11.80 (7.40-12.00) fL Neut % (Auto) 57.5 (48.0-80.0) % Lymph % (Auto) 28.5 (16.0-40.0) % [place] % (Auto) 11.1 (0.0-15.0) % Eos % (Auto) 2.5 (0.0-7.0) % Baso % (Auto) 0.4 (0.0-1.5) % Neut # (Auto) 3.9 (1.4-5.7) K/uL Lymph # (Auto) 1.9 (0.6-2.4) K/uL [place] # (Auto) 0.8 (0.0-0.8) K/uL Eos # (Auto) 0.2 (0.0-0.7) K/uL Baso # (Auto) 0.0 (0.0-0.1) K/uL Nucleated RBC % 0.0 /100WBC Nucleated RBCs # 0 K/uL Sodium 140 (136-148) mmol/L Potassium 3.7 (3.5-5.1) mmol/L Chloride 106 (98-107) mmol/L Carbon Dioxide 28.9 (21.0-32.0) mmol/L BUN 7 (7.0-18.0) mg/dL Creatinine 0.9 (0.8-1.3) mg/dL Est Cr Clr Drug Dosing 82.70 mL/min Estimated GFR (MDRD) > 60.0 ml/min Glucose 98 (74-106) mg/dL Calcium 8.3 L (8.5-10.1) mg/dL Vancomycin Trough 18.9 H (5.0-10.0) ug/mL Juve Results Last 24 Hours: Microbiology 07/20/21 16:56 Aerobic Blood Culture - Preliminary Blood - Venous - Lab Draw NO GROWTH AFTER 2 DAYS Anaerobic Blood Culture - Preliminary NO GROWTH AFTER 2 DAYS 07/20/21 15:05 Aerobic Blood Culture - Preliminary Blood - Venous NO GROWTH AFTER 2 DAYS Anaerobic Blood Culture - Preliminary NO GROWTH AFTER 2 DAYS Med Orders - Current: Current Medications Acetaminophen (Acetaminophen 325 Mg Tab) 650 mg PO Q4H PRN PRN Reason: Pain (Mild 1-3)/fever Last Admin: 07/22/21 10:40 Dose: 650 mg Documented by: Albuterol/Ipratropium (Albuterol/Ipratropium 3.0-0.5 Mg/3 Ml Neb Soln) 3 ml NEB Q4HRRT PRN PRN Reason: Shortness Of Breath/wheezing Last Admin: 07/21/21 02:46 Dose: 3 ml Documented by: Albuterol/Ipratropium (Albuterol/Ipratropium 4 Gm Inhalation [place]) 0 gm INH Q4HRRT [facility] Last Admin: 07/23/21 06:10 Dose: 1 puff Documented by: Amlodipine Besylate (Amlodipine 5 Mg Tab) 10 mg PO DAILY [facility] Last Admin: 07/22/21 09:15 Dose: 10 mg Documented by: Heparin Sodium (Porcine) (Heparin Sodium 5,000 Units/Ml Vial) 5,000 units SUBCUT Q8H [facility] Last Admin: 07/23/21 06:07 Dose: 5,000 units Documented by: Lactated Ringer's (Ringers, Lactated) 1,000 mls @ 125 mls/hr IV ASDIRECTED [facility] Last Admin: 07/22/21 22:50 Dose: 125 mls/hr Documented by: Cefepime HCl 1 gm/ Premix 50 mls @ 100 mls/hr IV Q8H [facility] Last Admin: 07/23/21 02:38 Dose: 100 mls/hr Documented by: Azithromycin 500 mg/ Sodium (Chloride) 250 mls @ 250 mls/hr IV Q24H [facility] Last Admin: 07/22/21 12:49 Dose: 250 mls/hr Documented by: Vancomycin HCl 1.25 gm/ Sodium (Chloride) 250 mls @ 165 mls/hr IV Q8H [facility] Last Admin: 07/23/21 03:17 Dose: 165 mls/hr Documented by: Labetalol HCl (Labetalol 100 Mg/20 Ml Mdv) 20 mg IVPUSH Q4H PRN PRN Reason: Hypertension Last Admin: 07/21/21 06:15 Dose: 20 mg Documented by: Lorazepam (Lorazepam 2 Mg/Ml Sdv) 1 mg IVPUSH Q6H PRN PRN Reason: Anxiety Last Admin: 07/21/21 02:39 Dose: 1 mg Documented by: Metoprolol Tartrate (Metoprolol Tartrate 25 Mg Tab) 25 mg PO Q12H [facility] Last Admin: 07/23/21 06:05 Dose: 25 mg Documented by: Ondansetron HCl (Ondansetron 4 Mg/2 Ml Sdv) 4 mg IVPUSH Q4H PRN PRN Reason: Nausea/Vomiting Sodium Chloride (Sodium Chloride 0.9% 10 Ml Syringe) 10 ml FLUSH ASDIRECTED PRN PRN Reason: Keep Vein Open Last Admin: 07/20/21 17:24 Dose: 10 ml Documented by: Sodium Chloride (Sodium Chloride 0.9% 2.5 Ml Syringe) 2.5 ml FLUSH ASDIRECTED PRN PRN Reason: Keep Vein Open Last Admin: 07/20/21 17:24 Dose: 2.5 ml Documented by: Tamsulosin HCl (Tamsulosin 0.4 Mg Cap.Er) 0.4 mg PO DAILY [facility] Last Admin: 07/22/21 09:15 Dose: 0.4 mg Documented by: Vancomycin HCl (Pharmacy To Dose - Vancomycin) 1 dose .XX ASDIRECTED [facility] Discontinued Medications Albuterol/Ipratropium (Albuterol/Ipratropium 3.0-0.5 Mg/3 Ml Neb Soln) 3 ml NEB ONETIME ONE Stop: 07/20/21 16:06 Last Admin: 07/20/21 16:24 Dose: 3 ml Documented by: Albuterol/Ipratropium (Albuterol/Ipratropium 4 Gm Inhalation [place]) 0 gm INH Q4H [facility] Last Admin: 07/22/21 09:59 Dose: 1 puff Documented by: Amlodipine Besylate (Amlodipine 5 Mg Tab) 10 mg PO ONETIME ONE Stop: 07/20/21 15:37 Last Admin: 07/20/21 15:47 Dose: 10 mg Documented by: Lactated Ringer's (Ringers, Lactated) 1,000 mls @ 999 mls/hr IV .BOLUS ONE Stop: 07/20/21 15:59 Last Admin: 07/20/21 15:20 Dose: 999 mls/hr Documented by: Cefepime HCl 2 gm/ Premix 50 mls @ 100 mls/hr IV ONETIME ONE Stop: 07/20/21 16:59 Last Admin: 07/20/21 17:24 Dose: 100 mls/hr Documented by: Vancomycin HCl 1 gm/ Sodium (Chloride) 250 mls @ 166 mls/hr IV ONETIME ONE Stop: 07/20/21 18:00 Last Admin: 07/20/21 17:24 Dose: 166 mls/hr Documented by: Cefepime HCl 2 gm/ Premix 50 mls @ 100 mls/hr IV ONETIME ONE Stop: 07/20/21 17:59 Last Admin: 07/20/21 17:53 Dose: Not Given Documented by: Vancomycin HCl 1 gm/ Sodium (Chloride) 250 mls @ 166 mls/hr IV Q8H [facility] Last Admin: 07/21/21 18:22 Dose: Not Given Documented by: Vancomycin HCl 1.25 gm/ Sodium (Chloride) 250 mls @ 165 mls/hr IV Q8H [facility] Last Admin: 07/22/21 18:56 Dose: Not Given Documented by: Iopamidol (Iopamidol 755 Mg/Ml 500 Ml Multipack Bottle) 100 ml IVPUSH ONETIME STA Stop: 07/20/21 17:53 Last Admin: 07/20/21 17:54 Dose: 100 ml Documented by: Lorazepam (Lorazepam 2 Mg/Ml Sdv) 1 mg IVPUSH ONETIME ONE Stop: 07/20/21 16:08 Last Admin: 07/20/21 16:08 Dose: 1 mg Documented by: Lorazepam (Lorazepam 2 Mg/Ml Sdv) Confirm Administered Dose 2 mg .ROUTE .STK-MED ONE Stop: 07/20/21 16:08 Last Admin: 07/20/21 16:26 Dose: Not Given Documented by: Morphine Sulfate (Morphine 2 Mg/Ml Syringe) 1 mg IVPUSH Q3H PRN PRN Reason: Pain (severe 7-10) Stop: 07/21/21 20:44 Last Admin: 07/21/21 04:24 Dose: 1 mg Documented by: Potassium Chloride (Potassium Chloride 20 Meq Tab.Er) 40 meq PO ONETIME ONE Stop: 07/21/21 16:32 Last Admin: 07/21/21 17:15 Dose: 40 meq Documented by: - Exam Quality Assessment: Supplemental Oxygen (3 L nasal cannula), DVT Prophylaxis General: Alert, Oriented, Cooperative, No Acute Distress Lungs: Decreased Breath Sounds (Bibasilar with fine crackles much improved from previous days) Cardiovascular: Regular Rate, Regular Rhythm, Irregular Rhythm (Is irregular A. fib a flutter intermittently on telemetry.) GI/Abdominal Exam: Normal Bowel Sounds, Soft, Non-Tender Back Exam: Normal Inspection, Full Range of Motion Extremities: Normal Inspection, Normal Range of Motion, Non-Tender, No Pedal Edema Neurological: No New Focal Deficit Psy/Mental Status: Alert, Normal Affect, Normal Mood - Patient Data Lab Results Last 24 hrs: Laboratory Results - last 24 hr 07/22/21 07/23/21 07/23/21 Range/Units 16:50 05:30 05:30 WBC 6.74 (4.0-11.0) K/uL RBC 4.58 (4.50-5.90) M/uL Hgb 14.0 (13.0-17.0) g/dL Hct 41.9 (38.0-50.0) % MCV 91.5 (80.0-98.0) fL MCH 30.6 (27.0-32.0) pg MCHC 33.4 (31.0-37.0) g/dL RDW Std Deviation 44.5 (28.0-62.0) fl RDW Coeff of Shakir 13 (11.0-15.0) % Plt Count 236 (150-400) K/uL MPV 11.80 (7.40-12.00) fL Neut % (Auto) 57.5 (48.0-80.0) % Lymph % (Auto) 28.5 (16.0-40.0) % [place] % (Auto) 11.1 (0.0-15.0) % Eos % (Auto) 2.5 (0.0-7.0) % Baso % (Auto) 0.4 (0.0-1.5) % Neut # (Auto) 3.9 (1.4-5.7) K/uL Lymph # (Auto) 1.9 (0.6-2.4) K/uL [place] # (Auto) 0.8 (0.0-0.8) K/uL Eos # (Auto) 0.2 (0.0-0.7) K/uL Baso # (Auto) 0.0 (0.0-0.1) K/uL Nucleated RBC % 0.0 /100WBC Nucleated RBCs # 0 K/uL Sodium 140 (136-148) mmol/L Potassium 3.7 (3.5-5.1) mmol/L Chloride 106 (98-107) mmol/L Carbon Dioxide 28.9 (21.0-32.0) mmol/L BUN 7 (7.0-18.0) mg/dL Creatinine 0.9 (0.8-1.3) mg/dL Est Cr Clr Drug Dosing 82.70 mL/min Estimated GFR (MDRD) > 60.0 ml/min Glucose 98 (74-106) mg/dL Calcium 8.3 L (8.5-10.1) mg/dL Vancomycin Trough 18.9 H (5.0-10.0) ug/mL Result Diagrams: 07/23/21 05:30 07/23/21 05:30 Juve Results Last 24 hrs: Microbiology 07/20/21 16:56 Aerobic Blood Culture - Preliminary Blood - Venous - Lab Draw NO GROWTH AFTER 2 DAYS Anaerobic Blood Culture - Preliminary NO GROWTH AFTER 2 DAYS 07/20/21 15:05 Aerobic Blood Culture - Preliminary Blood - Venous NO GROWTH AFTER 2 DAYS Anaerobic Blood Culture - Preliminary NO GROWTH AFTER 2 DAYS Sepsis Event Note - Evaluation Sepsis Screening Result: No Definite Risk - Focused Exam Vital Signs: Vital Signs Temp Pulse Pulse Resp BP BP Pulse Ox 07/23/21 06:05 75 154/96 H 07/23/21 06:04 75 19 154/96 H 94 L 07/23/21 05:45 97.4 F 76 18 148/95 H 96 07/23/21 02:30 93 L 07/22/21 22:46 98.7 F 93 20 136/81 96 07/22/21 20:00 98.5 F 96 20 131/84 94 L - Problem List & Annotations (1) Acute respiratory failure with hypoxia SNOMED Code(s): 01055867, 929630425 Code(s): J96.01 - ACUTE RESPIRATORY FAILURE WITH HYPOXIA Status: Acute Current Visit: Yes (2) CAP (community acquired pneumonia) SNOMED Code(s): 635106144 Code(s): J18.9 - PNEUMONIA, UNSPECIFIED ORGANISM Status: Acute Current Visit: Yes (3) HTN (hypertension) SNOMED Code(s): 43873622 Code(s): I10 - ESSENTIAL (PRIMARY) HYPERTENSION Status: Chronic Current Visit: Yes (4) ALEXEY (obstructive sleep apnea) SNOMED Code(s): 21716349 Code(s): G47.33 - OBSTRUCTIVE SLEEP APNEA (ADULT) (PEDIATRIC) Status: Chronic Current Visit: Yes (5) A-fib SNOMED Code(s): 80854735 Code(s): I48.91 - UNSPECIFIED ATRIAL FIBRILLATION Status: Acute Current Visit: Yes Qualifiers: Atrial fibrillation type: paroxysmal Qualified Code(s): I48.0 - Paroxysmal atrial fibrillation - Problem List Review Problem List Initiated/Reviewed/Updated: Yes - Plan Plan:: 58-year-old male admitted for acute hypoxic respiratory failure possible viral pneumonia or atypical CAP 1. Acute hypoxic restaurant failure/possible viral pneumonia/possible atypical CAP -Continue oxygen via low pressure system nasal cannula currently requiring 3 L -Leukocytosis has resolved -Continue azithromycin, cefepime and DC vancomycin -DuoNebs for dyspnea -Robitussin for cough -Encourage pulmonary toileting including I-S and coughing and deep breathing -Blood cultures negative -Pending legionella/strep antigen urine 2. Atrial fibrillation -Metoprolol started for continued intermittent paroxysmal atrial fibrillation heart rates in the 130s -Patient at this time has been asymptomatic. -Continue metoprolol 25 mg twice daily consider increasing -Obtain echo -[id number] score 1 start aspirin daily -We will need outpatient referral to cardiology. -Patient does have history and recent use of cocaine patient counseled heavily that this is a very dangerous medication especially with individuals with heart disease he can have sudden cardiac arrest or massive myocardial infarction. P atient verbalized understanding and plans to quit use at this time. 3. Hypertension/ALEXEY -Continue amlodipine -Labetalol as needed for blood pressure greater than 180 systolically VTE prophylaxis: Heparin CODE STATUS: Full code Dispo: 1-2 days pending improvement and continued weaning of oxygen.
[2021-07-23] MEDS: amLODIPine 5 MG Tab PO SCH (08:53)
[2021-07-23] MEDS: Tamsulosin 0.4 MG Cap.ER PO SCH (08:55)
[2021-07-23] MEDS: Aspirin 81 MG Tab.EC PO SCH (11:04)
[2021-07-23] MEDS: Azithromycin 500 MG in Sodium Chloride 0.9% 250 ML IV SCH (11:49)
[2021-07-24] MEDS: Albuterol/Ipratropium 4 GM Inhalation Spray INH SCH ×6 (02:05→22:32)
[2021-07-24] MEDS: Cefepime 1 GM in Premix Bag 1 BAG IV SCH ×3 (02:08→17:52)
[2021-07-24] MEDS: Metoprolol Tartrate 25 MG Tab PO SCH ×2 (06:14→17:49)
[2021-07-24] MEDS: Heparin Sodium 5,000 Units/ML Vial SUBCUT SCH ×3 (06:16→20:59)
[2021-07-24 06:23] LABS: BLOOD UREA NITROGEN,BUN 7 mg/dL (7.0-18.0); CARBON DIOXIDE,CO2 30.6 mmol/L (21.0-32.0); CHLORIDE,CL 104 mmol/L (98-107); GLUCOSE RANDOM 94 mg/dL (74-106); POTASSIUM,K 3.8 mmol/L (3.5-5.1); SODIUM,NA 140 mmol/L (136-148)
[2021-07-24] MEDS: Aspirin 81 MG Tab.EC PO SCH (08:21)
[2021-07-24] MEDS: Tamsulosin 0.4 MG Cap.ER PO SCH (08:22)
[2021-07-24] MEDS: amLODIPine 5 MG Tab PO SCH (08:23)
[2021-07-24] MEDS: Azithromycin 500 MG in Sodium Chloride 0.9% 250 ML IV SCH (11:02)
--- NOTE | 2021-07-24 12:04 | PCM.DCSUM1 ---
Discharge Summary - Hospital Course Diagnosis: Stroke: No - Discharge Data Discharge Disposition: Home, Self-Care 01 Condition: Fair - Referral to Home Health Primary Care Physician: PCP None - Discharge Diagnosis/Problem(s) (1) HTN (hypertension) SNOMED Code(s): 29046642 ICD Code: I10 - ESSENTIAL (PRIMARY) HYPERTENSION Status: Chronic Current Visit: Yes (2) Hypoxia SNOMED Code(s): 955895028 ICD Code: R09.02 - HYPOXEMIA Status: Acute Current Visit: Yes (3) Pneumonia SNOMED Code(s): 937442457 ICD Code: J18.9 - PNEUMONIA, UNSPECIFIED ORGANISM Status: Acute Current Visit: Yes - Patient Instructions Diet: Heart Healthy Diet Activity: As Tolerated Driving: May Drive Today Showering/Bathing: May Shower Notify Provider of: Fever, Increased Pain, Swelling and Redness, Drainage, Nausea and/or Vomiting - Discharge Plan *PRESCRIPTION DRUG MONITORING PROGRAM REVIEWED*: Not Applicable *COPY OF PRESCRIPTION DRUG MONITORING REPORT IN PATIENT FIDELIA: Not Applicable Prescriptions/Med Rec: Aspirin [Halfprin] 81 mg PO DAILY #30 tab.ec levoFLOXacin [Levaquin] 750 mg PO DAILY #7 tab Metoprolol Tartrate [Lopressor] 25 mg PO Q12H #60 tablet Home Medications: Home Meds Tamsulosin [Flomax] 0.4 mg PO DAILY 07/20/21 [History] amLODIPine [Norvasc] 10 mg PO DAILY 07/20/21 [History] Aspirin [Halfprin] 81 mg PO DAILY #30 tab.ec 07/24/21 [Rx] Metoprolol Tartrate [Lopressor] 25 mg PO Q12H #60 tablet 07/24/21 [Rx] levoFLOXacin [Levaquin] 750 mg PO DAILY #7 tab 07/24/21 [Rx] Forms: ED Department Discharge Referrals: Eduardo Bush MD [Physician] - 08/02/21 2:00 pm (Please arrive 15 minutes early, bring insurance ID card and wear mask.) Aurea Walker MD [Physician] - (referral form faxed,awaits appointment date.) - Patient Data Vitals - Most Recent: Last Vital Signs Temp 35.9 C L 07/24/21 07:59 Pulse 60 07/24/21 07:59 Resp 22 H 07/24/21 07:59 BP 137/93 H 07/24/21 08:23 Pulse Ox 98 07/24/21 07:59 Weight - Most Recent: 73.255 kg I&O - Last 24 hours: Intake & Output 07/23/21 07/24/21 07/24/21 22:59 06:59 14:59 Intake Total 700 Balance 700 Lab Results - Last 24 hrs: Laboratory Results - last 24 hr 07/24/21 07/24/21 Range/Units 05:20 05:20 WBC 6.46 (4.0-11.0) K/uL RBC 4.65 (4.50-5.90) M/uL Hgb 14.2 (13.0-17.0) g/dL Hct 42.8 (38.0-50.0) % MCV 92.0 (80.0-98.0) fL MCH 30.5 (27.0-32.0) pg MCHC 33.2 (31.0-37.0) g/dL RDW Std Deviation 45.1 (28.0-62.0) fl RDW Coeff of Shakir 13 (11.0-15.0) % Plt Count 243 (150-400) K/uL MPV 12.50 H (7.40-12.00) fL Neut % (Auto) 54.3 (48.0-80.0) % Lymph % (Auto) 32.8 (16.0-40.0) % [place] % (Auto) 10.7 (0.0-15.0) % Eos % (Auto) 1.7 (0.0-7.0) % Baso % (Auto) 0.5 (0.0-1.5) % Neut # (Auto) 3.5 (1.4-5.7) K/uL Lymph # (Auto) 2.1 (0.6-2.4) K/uL [place] # (Auto) 0.7 (0.0-0.8) K/uL Eos # (Auto) 0.1 (0.0-0.7) K/uL Baso # (Auto) 0.0 (0.0-0.1) K/uL Nucleated RBC % 0.0 /100WBC Nucleated RBCs # 0 K/uL Sodium 140 (136-148) mmol/L Potassium 3.8 (3.5-5.1) mmol/L Chloride 104 (98-107) mmol/L Carbon Dioxide 30.6 (21.0-32.0) mmol/L BUN 7 (7.0-18.0) mg/dL Creatinine 1.0 (0.8-1.3) mg/dL Est Cr Clr Drug Dosing 74.43 mL/min Estimated GFR (MDRD) > 60.0 ml/min Glucose 94 (74-106) mg/dL Calcium 8.5 (8.5-10.1) mg/dL Magnesium 2.0 (1.8-2.4) mg/dL ANGELA Results - Last 24 hrs: Microbiology 07/20/21 16:56 Aerobic Blood Culture - Preliminary Blood - Venous - Lab Draw NO GROWTH AFTER 3 DAYS Anaerobic Blood Culture - Preliminary NO GROWTH AFTER 3 DAYS 07/20/21 15:05 Aerobic Blood Culture - Preliminary Blood - Venous NO GROWTH AFTER 3 DAYS Anaerobic Blood Culture - Preliminary NO GROWTH AFTER 3 DAYS 07/21/21 15:15 Streptococcus pneumoniae Antigen (M - Final Urine 07/21/21 15:15 Legionella Urinary Antigen - Final Urine Med Orders - Current: Current Medications Acetaminophen (Acetaminophen 325 Mg Tab) 650 mg PO Q4H PRN PRN Reason: Pain (Mild 1-3)/fever Last Admin: 07/22/21 10:40 Dose: 650 mg Documented by: Albuterol/Ipratropium (Albuterol/Ipratropium 3.0-0.5 Mg/3 Ml Neb Soln) 3 ml NEB Q4HRRT PRN PRN Reason: Shortness Of Breath/wheezing Last Admin: 07/21/21 02:46 Dose: 3 ml Documented by: Albuterol/Ipratropium (Albuterol/Ipratropium 4 Gm Inhalation [place]) 0 gm INH Q4HRRT [facility] Last Admin: 07/24/21 10:16 Dose: 1 puff Documented by: Amlodipine Besylate (Amlodipine 5 Mg Tab) 10 mg PO DAILY [facility] Last Admin: 07/24/21 08:23 Dose: 10 mg Documented by: Aspirin (Aspirin 81 Mg Tab.Ec) 81 mg PO DAILY [facility] Last Admin: 07/24/21 08:21 Dose: 81 mg Documented by: Heparin Sodium (Porcine) (Heparin Sodium 5,000 Units/Ml Vial) 5,000 units SUBCUT Q8H [facility] Last Admin: 07/24/21 06:16 Dose: 5,000 units Documented by: Cefepime HCl 1 gm/ Premix 50 mls @ 100 mls/hr IV Q8H [facility] Last Admin: 07/24/21 10:17 Dose: 100 mls/hr Documented by: Azithromycin 500 mg/ Sodium (Chloride) 250 mls @ 250 mls/hr IV Q24H [facility] Last Admin: 07/24/21 11:02 Dose: 250 mls/hr Documented by: Labetalol HCl (Labetalol 100 Mg/20 Ml Mdv) 20 mg IVPUSH Q4H PRN PRN Reason: Hypertension Last Admin: 07/21/21 06:15 Dose: 20 mg Documented by: Lorazepam (Lorazepam 2 Mg/Ml Sdv) 1 mg IVPUSH Q6H PRN PRN Reason: Anxiety Last Admin: 07/21/21 02:39 Dose: 1 mg Documented by: Metoprolol Tartrate (Metoprolol Tartrate 25 Mg Tab) 25 mg PO Q12H [facility] Last Admin: 07/24/21 06:14 Dose: 25 mg Documented by: Ondansetron HCl (Ondansetron 4 Mg/2 Ml Sdv) 4 mg IVPUSH Q4H PRN PRN Reason: Nausea/Vomiting Sodium Chloride (Sodium Chloride 0.9% 10 Ml Syringe) 10 ml FLUSH ASDIRECTED PRN PRN Reason: Keep Vein Open Last Admin: 07/20/21 17:24 Dose: 10 ml Documented by: Sodium Chloride (Sodium Chloride 0.9% 2.5 Ml Syringe) 2.5 ml FLUSH ASDIRECTED PRN PRN Reason: Keep Vein Open Last Admin: 07/20/21 17:24 Dose: 2.5 ml Documented by: Tamsulosin HCl (Tamsulosin 0.4 Mg Cap.Er) 0.4 mg PO DAILY [facility] Last Admin: 07/24/21 08:22 Dose: 0.4 mg Documented by: Discontinued Medications Albuterol/Ipratropium (Albuterol/Ipratropium 3.0-0.5 Mg/3 Ml Neb Soln) 3 ml NEB ONETIME ONE Stop: 07/20/21 16:06 Last Admin: 07/20/21 16:24 Dose: 3 ml Documented by: Albuterol/Ipratropium (Albuterol/Ipratropium 4 Gm Inhalation [place]) 0 gm INH Q4H [facility] Last Admin: 07/22/21 09:59 Dose: 1 puff Documented by: Amlodipine Besylate (Amlodipine 5 Mg Tab) 10 mg PO ONETIME ONE Stop: 07/20/21 15:37 Last Admin: 07/20/21 15:47 Dose: 10 mg Documented by: Lactated Ringer's (Ringers, Lactated) 1,000 mls @ 999 mls/hr IV .BOLUS ONE Stop: 07/20/21 15:59 Last Admin: 07/20/21 15:20 Dose: 999 mls/hr Documented by: Cefepime HCl 2 gm/ Premix 50 mls @ 100 mls/hr IV ONETIME ONE Stop: 07/20/21 16:59 Last Admin: 07/20/21 17:24 Dose: 100 mls/hr Documented by: Vancomycin HCl 1 gm/ Sodium (Chloride) 250 mls @ 166 mls/hr IV ONETIME ONE Stop: 07/20/21 18:00 Last Admin: 07/20/21 17:24 Dose: 166 mls/hr Documented by: Cefepime HCl 2 gm/ Premix 50 mls @ 100 mls/hr IV ONETIME ONE Stop: 07/20/21 17:59 Last Admin: 07/20/21 17:53 Dose: Not Given Documented by: Lactated Ringer's (Ringers, Lactated) 1,000 mls @ 125 mls/hr IV ASDIRECTED [facility] Last Admin: 07/22/21 22:50 Dose: 125 mls/hr Documented by: Vancomycin HCl 1 gm/ Sodium (Chloride) 250 mls @ 166 mls/hr IV Q8H [facility] Last Admin: 07/21/21 18:22 Dose: Not Given Documented by: Vancomycin HCl 1.25 gm/ Sodium (Chloride) 250 mls @ 165 mls/hr IV Q8H [facility] Last Admin: 07/22/21 18:56 Dose: Not Given Documented by: Vancomycin HCl 1.25 gm/ Sodium (Chloride) 250 mls @ 165 mls/hr IV Q8H [facility] Last Admin: 07/23/21 15:32 Dose: Not Given Documented by: Iopamidol (Iopamidol 755 Mg/Ml 500 Ml Multipack Bottle) 100 ml IVPUSH ONETIME STA Stop: 07/20/21 17:53 Last Admin: 07/20/21 17:54 Dose: 100 ml Documented by: Lorazepam (Lorazepam 2 Mg/Ml Sdv) 1 mg IVPUSH ONETIME ONE Stop: 07/20/21 16:08 Last Admin: 07/20/21 16:08 Dose: 1 mg Documented by: Lorazepam (Lorazepam 2 Mg/Ml Sdv) Confirm Administered Dose 2 mg .ROUTE .STK-MED ONE Stop: 07/20/21 16:08 Last Admin: 07/20/21 16:26 Dose: Not Given Documented by: Morphine Sulfate (Morphine 2 Mg/Ml Syringe) 1 mg IVPUSH Q3H PRN PRN Reason: Pain (severe 7-10) Stop: 07/21/21 20:44 Last Admin: 07/21/21 04:24 Dose: 1 mg Documented by: Potassium Chloride (Potassium Chloride 20 Meq Tab.Er) 40 meq PO ONETIME ONE Stop: 07/21/21 16:32 Last Admin: 07/21/21 17:15 Dose: 40 meq Documented by: Vancomycin HCl (Pharmacy To Dose - Vancomycin) 1 dose .XX ASDIRECTED [facility]
--- NOTE | 2021-07-24 13:12 | PCM.PN ---
- General Info Date of Service: 07/24/21 Admission Dx/Problem (Free Text): Admission Diagnosis/Problem Admission Diagnosis/Problem acute hypoxic respiratory failure, CAP Subjective Update: Feeling much improved today. Reports shortness of breath has improved cough is improved no chest pain. He is eating and drinking well. Denies any palpitations. Oxygen requirements down to 2 lts, nurses are trying to wean him off to room air but he desatted to less than 88% so had to be put back on the oxygen. - Review of Systems General: Denies: Fever, Weakness, Fatigue Pulmonary: Reports: Cough. Denies: Shortness of Breath, Pleuritic Chest Pain Gastrointestinal: Denies: Abdominal Pain, Constipation, Decreased Appetite Genitourinary: Denies: Dysuria, Frequency, Burning Musculoskeletal: Denies: Neck Pain, Shoulder Pain, Arm Pain Skin: Denies: Cyanosis, Jaundice, Mottled, Pallor, Diaphoresis - Patient Data Vitals - Most Recent: Last Vital Signs Temp 36.3 C 07/24/21 12:00 Pulse 89 07/24/21 12:00 Resp 22 H 07/24/21 12:00 BP 136/94 H 07/24/21 12:00 Pulse Ox 91 L 07/24/21 12:00 Weight - Most Recent: 73.255 kg I&O - Last 24 Hours: Intake & Output 07/23/21 07/24/21 07/24/21 22:59 06:59 14:59 Intake Total 700 Balance 700 Lab Results Last 24 Hours: Laboratory Results - last 24 hr 07/24/21 07/24/21 Range/Units 05:20 05:20 WBC 6.46 (4.0-11.0) K/uL RBC 4.65 (4.50-5.90) M/uL Hgb 14.2 (13.0-17.0) g/dL Hct 42.8 (38.0-50.0) % MCV 92.0 (80.0-98.0) fL MCH 30.5 (27.0-32.0) pg MCHC 33.2 (31.0-37.0) g/dL RDW Std Deviation 45.1 (28.0-62.0) fl RDW Coeff of Shakir 13 (11.0-15.0) % Plt Count 243 (150-400) K/uL MPV 12.50 H (7.40-12.00) fL Neut % (Auto) 54.3 (48.0-80.0) % Lymph % (Auto) 32.8 (16.0-40.0) % [place] % (Auto) 10.7 (0.0-15.0) % Eos % (Auto) 1.7 (0.0-7.0) % Baso % (Auto) 0.5 (0.0-1.5) % Neut # (Auto) 3.5 (1.4-5.7) K/uL Lymph # (Auto) 2.1 (0.6-2.4) K/uL [place] # (Auto) 0.7 (0.0-0.8) K/uL Eos # (Auto) 0.1 (0.0-0.7) K/uL Baso # (Auto) 0.0 (0.0-0.1) K/uL Nucleated RBC % 0.0 /100WBC Nucleated RBCs # 0 K/uL Sodium 140 (136-148) mmol/L Potassium 3.8 (3.5-5.1) mmol/L Chloride 104 (98-107) mmol/L Carbon Dioxide 30.6 (21.0-32.0) mmol/L BUN 7 (7.0-18.0) mg/dL Creatinine 1.0 (0.8-1.3) mg/dL Est Cr Clr Drug Dosing 74.43 mL/min Estimated GFR (MDRD) > 60.0 ml/min Glucose 94 (74-106) mg/dL Calcium 8.5 (8.5-10.1) mg/dL Magnesium 2.0 (1.8-2.4) mg/dL Juve Results Last 24 Hours: Microbiology 07/20/21 16:56 Aerobic Blood Culture - Preliminary Blood - Venous - Lab Draw NO GROWTH AFTER 3 DAYS Anaerobic Blood Culture - Preliminary NO GROWTH AFTER 3 DAYS 07/20/21 15:05 Aerobic Blood Culture - Preliminary Blood - Venous NO GROWTH AFTER 3 DAYS Anaerobic Blood Culture - Preliminary NO GROWTH AFTER 3 DAYS 07/21/21 15:15 Streptococcus pneumoniae Antigen (M - Final Urine 07/21/21 15:15 Legionella Urinary Antigen - Final Urine Med Orders - Current: Current Medications Acetaminophen (Acetaminophen 325 Mg Tab) 650 mg PO Q4H PRN PRN Reason: Pain (Mild 1-3)/fever Last Admin: 07/22/21 10:40 Dose: 650 mg Documented by: Albuterol/Ipratropium (Albuterol/Ipratropium 3.0-0.5 Mg/3 Ml Neb Soln) 3 ml NEB Q4HRRT PRN PRN Reason: Shortness Of Breath/wheezing Last Admin: 07/21/21 02:46 Dose: 3 ml Documented by: Albuterol/Ipratropium (Albuterol/Ipratropium 4 Gm Inhalation [place]) 0 gm INH Q4HRRT [facility] Last Admin: 07/24/21 10:16 Dose: 1 puff Documented by: Amlodipine Besylate (Amlodipine 5 Mg Tab) 10 mg PO DAILY [facility] Last Admin: 07/24/21 08:23 Dose: 10 mg Documented by: Aspirin (Aspirin 81 Mg Tab.Ec) 81 mg PO DAILY [facility] Last Admin: 07/24/21 08:21 Dose: 81 mg Documented by: Heparin Sodium (Porcine) (Heparin Sodium 5,000 Units/Ml Vial) 5,000 units SUBCUT Q8H [facility] Last Admin: 07/24/21 06:16 Dose: 5,000 units Documented by: Cefepime HCl 1 gm/ Premix 50 mls @ 100 mls/hr IV Q8H [facility] Last Admin: 07/24/21 10:17 Dose: 100 mls/hr Documented by: Azithromycin 500 mg/ Sodium (Chloride) 250 mls @ 250 mls/hr IV Q24H [facility] Last Admin: 07/24/21 11:02 Dose: 250 mls/hr Documented by: Labetalol HCl (Labetalol 100 Mg/20 Ml Mdv) 20 mg IVPUSH Q4H PRN PRN Reason: Hypertension Last Admin: 07/21/21 06:15 Dose: 20 mg Documented by: Lorazepam (Lorazepam 2 Mg/Ml Sdv) 1 mg IVPUSH Q6H PRN PRN Reason: Anxiety Last Admin: 07/21/21 02:39 Dose: 1 mg Documented by: Metoprolol Tartrate (Metoprolol Tartrate 25 Mg Tab) 25 mg PO Q12H [facility] Last Admin: 07/24/21 06:14 Dose: 25 mg Documented by: Ondansetron HCl (Ondansetron 4 Mg/2 Ml Sdv) 4 mg IVPUSH Q4H PRN PRN Reason: Nausea/Vomiting Sodium Chloride (Sodium Chloride 0.9% 10 Ml Syringe) 10 ml FLUSH ASDIRECTED PRN PRN Reason: Keep Vein Open Last Admin: 07/20/21 17:24 Dose: 10 ml Documented by: Sodium Chloride (Sodium Chloride 0.9% 2.5 Ml Syringe) 2.5 ml FLUSH ASDIRECTED PRN PRN Reason: Keep Vein Open Last Admin: 07/20/21 17:24 Dose: 2.5 ml Documented by: Tamsulosin HCl (Tamsulosin 0.4 Mg Cap.Er) 0.4 mg PO DAILY [facility] Last Admin: 07/24/21 08:22 Dose: 0.4 mg Documented by: Discontinued Medications Albuterol/Ipratropium (Albuterol/Ipratropium 3.0-0.5 Mg/3 Ml Neb Soln) 3 ml NEB ONETIME ONE Stop: 07/20/21 16:06 Last Admin: 07/20/21 16:24 Dose: 3 ml Documented by: Albuterol/Ipratropium (Albuterol/Ipratropium 4 Gm Inhalation [place]) 0 gm INH Q 4H [facility] Last Admin: 07/22/21 09:59 Dose: 1 puff Documented by: Amlodipine Besylate (Amlodipine 5 Mg Tab) 10 mg PO ONETIME ONE Stop: 07/20/21 15:37 Last Admin: 07/20/21 15:47 Dose: 10 mg Documented by: Lactated Ringer's (Ringers, Lactated) 1,000 mls @ 999 mls/hr IV .BOLUS ONE Stop: 07/20/21 15:59 Last Admin: 07/20/21 15:20 Dose: 999 mls/hr Documented by: Cefepime HCl 2 gm/ Premix 50 mls @ 100 mls/hr IV ONETIME ONE Stop: 07/20/21 16:59 Last Admin: 07/20/21 17:24 Dose: 100 mls/hr Documented by: Vancomycin HCl 1 gm/ Sodium (Chloride) 250 mls @ 166 mls/hr IV ONETIME ONE Stop: 07/20/21 18:00 Last Admin: 07/20/21 17:24 Dose: 166 mls/hr Documented by: Cefepime HCl 2 gm/ Premix 50 mls @ 100 mls/hr IV ONETIME ONE Stop: 07/20/21 17:59 Last Admin: 07/20/21 17:53 Dose: Not Given Documented by: Lactated Ringer's (Ringers, Lactated) 1,000 mls @ 125 mls/hr IV ASDIRECTED [facility] Last Admin: 07/22/21 22:50 Dose: 125 mls/hr Documented by: Vancomycin HCl 1 gm/ Sodium (Chloride) 250 mls @ 166 mls/hr IV Q8H [facility] Last Admin: 07/21/21 18:22 Dose: Not Given Documented by: Vancomycin HCl 1.25 gm/ Sodium (Chloride) 250 mls @ 165 mls/hr IV Q8H [facility] Last Admin: 07/22/21 18:56 Dose: Not Given Documented by: Vancomycin HCl 1.25 gm/ Sodium (Chloride) 250 mls @ 165 mls/hr IV Q8H [facility] Last Admin: 07/23/21 15:32 Dose: Not Given Documented by: Iopamidol (Iopamidol 755 Mg/Ml 500 Ml Multipack Bottle) 100 ml IVPUSH ONETIME STA Stop: 07/20/21 17:53 Last Admin: 07/20/21 17:54 Dose: 100 ml Documented by: Lorazepam (Lorazepam 2 Mg/Ml Sdv) 1 mg IVPUSH ONETIME ONE Stop: 07/20/21 16:08 Last Admin: 07/20/21 16:08 Dose: 1 mg Documented by: Lorazepam (Lorazepam 2 Mg/Ml Sdv) Confirm Administered Dose 2 mg .ROUTE .STK-MED ONE Stop: 07/20/21 16:08 Last Admin: 07/20/21 16:26 Dose: Not Given Documented by: Morphine Sulfate (Morphine 2 Mg/Ml Syringe) 1 mg IVPUSH Q3H PRN PRN Reason: Pain (severe 7-10) Stop: 07/21/21 20:44 Last Admin: 07/21/21 04:24 Dose: 1 mg Documented by: Potassium Chloride (Potassium Chloride 20 Meq Tab.Er) 40 meq PO ONETIME ONE Stop: 07/21/21 16:32 Last Admin: 07/21/21 17:15 Dose: 40 meq Documented by: Vancomycin HCl (Pharmacy To Dose - Vancomycin) 1 dose .XX ASDIRECTED [facility] - Exam Quality Assessment: Supplemental Oxygen General: Alert, Oriented Neck: Supple Lungs: Clear to Auscultation, Normal Respiratory Effort, Decreased Breath Sounds, Rales Cardiovascular: Regular Rate, Regular Rhythm GI/Abdominal Exam: Normal Bowel Sounds, Soft, Non-Tender - Patient Data Lab Results Last 24 hrs: Laboratory Results - last 24 hr 07/24/21 07/24/21 Range/Units 05:20 05:20 WBC 6.46 (4.0-11.0) K/uL RBC 4.65 (4.50-5.90) M/uL Hgb 14.2 (13.0-17.0) g/dL Hct 42.8 (38.0-50.0) % MCV 92.0 (80.0-98.0) fL MCH 30.5 (27.0-32.0) pg MCHC 33.2 (31.0-37.0) g/dL RDW Std Deviation 45.1 (28.0-62.0) fl RDW Coeff of Shakir 13 (11.0-15.0) % Plt Count 243 (150-400) K/uL MPV 12.50 H (7.40-12.00) fL Neut % (Auto) 54.3 (48.0-80.0) % Lymph % (Auto) 32.8 (16.0-40.0) % [place] % (Auto) 10.7 (0.0-15.0) % Eos % (Auto) 1.7 (0.0-7.0) % Baso % (Auto) 0.5 (0.0-1.5) % Neut # (Auto) 3.5 (1.4-5.7) K/uL Lymph # (Auto) 2.1 (0.6-2.4) K/uL [place] # (Auto) 0.7 (0.0-0.8) K/uL Eos # (Auto) 0.1 (0.0-0.7) K/uL Baso # (Auto) 0.0 (0.0-0.1) K/uL Nucleated RBC % 0.0 /100WBC Nucleated RBCs # 0 K/uL Sodium 140 (136-148) mmol/L Potassium 3.8 (3.5-5.1) mmol/L Chloride 104 (98-107) mmol/L Carbon Dioxide 30.6 (21.0-32.0) mmol/L BUN 7 (7.0-18.0) mg/dL Creatinine 1.0 (0.8-1.3) mg/dL Est Cr Clr Drug Dosing 74.43 mL/min Estimated GFR (MDRD) > 60.0 ml/min Glucose 94 (74-106) mg/dL Calcium 8.5 (8.5-10.1) mg/dL Magnesium 2.0 (1.8-2.4) mg/dL Result Diagrams: 07/24/21 05:20 07/24/21 05:20 Juve Results Last 24 hrs: Microbiology 07/20/21 16:56 Aerobic Blood Culture - Preliminary Blood - Venous - Lab Draw NO GROWTH AFTER 3 DAYS Anaerobic Blood Culture - Preliminary NO GROWTH AFTER 3 DAYS 07/20/21 15:05 Aerobic Blood Culture - Preliminary Blood - Venous NO GROWTH AFTER 3 DAYS Anaerobic Blood Culture - Preliminary NO GROWTH AFTER 3 DAYS 07/21/21 15:15 Streptococcus pneumoniae Antigen (M - Final Urine 07/21/21 15:15 Legionella Urinary Antigen - Final Urine Sepsis Event Note - Evaluation Sepsis Screening Result: No Definite Risk - Focused Exam Vital Signs: Vital Signs Temp Pulse Pulse Resp BP BP Pulse Ox 07/24/21 12:00 36.3 C 89 22 H 136/94 H 91 L 07/24/21 08:23 137/93 H 07/24/21 07:59 35.9 C L 60 22 H 137/93 H 98 07/24/21 06:14 71 130/78 07/24/21 04:00 36.3 C 67 24 H 138/93 H 97 - Problem List & Annotations (1) HTN (hypertension) SNOMED Code(s): 99215859 Code(s): I10 - ESSENTIAL (PRIMARY) HYPERTENSION Status: Chronic Current Visit: Yes (2) Hypoxia SNOMED Code(s): 457907107 Code(s): R09.02 - HYPOXEMIA Status: Acute Current Visit: Yes (3) Pneumonia SNOMED Code(s): 174766867 Code(s): J18.9 - PNEUMONIA, UNSPECIFIED ORGANISM Status: Acute Current Visit: Yes - Problem List Review Problem List Initiated/Reviewed/Updated: Yes - My Orders Last 24 Hours: My Active Orders 07/24/21 11:56 Ready for Discharge [RC] PER UNIT ROUTINE - Plan Plan:: 58-year-old male admitted for acute hypoxic respiratory failure possible viral pneumonia or atypical CAP 1. Acute hypoxic restaurant failure/possible viral pneumonia/possible atypical CAP -Continue oxygen via low pressure system nasal cannula currently requiring 2 L -Leukocytosis has resolved -Continue azithromycin, cefepime -DuoNebs for dyspnea -Robitussin for cough -Encourage pulmonary toileting including I-S and coughing and deep breathing -Blood cultures negative -Pending legionella/strep antigen urine 2. Atrial fibrillation -Metoprolol started for continued intermittent paroxysmal atrial fibrillation heart rates in the 130s -Patient at this time has been asymptomatic. -Continue metoprolol 25 mg twice daily consider increasing -Obtain echo -[id number] score 1 start aspirin daily -We will need outpatient referral to cardiology. -Patient does have history and recent use of cocaine patient counseled heavily that this is a very dangerous medication especially with individuals with heart disease he can have sudden cardiac arrest or massive myocardial infarction. Patient verbalized understanding and plans to quit use at this time. 3. Hypertension/ALEXEY -Continue amlodipine -Labetalol as needed for blood pressure greater than 180 systolically VTE prophylaxis: Heparin CODE STATUS: Full code Dispo: 1-2 days pending improvement and continued weaning of oxygen.
[2021-07-24] MEDS ORDERED: Potassium Chloride 20 MEQ Tab.ER PO ONE (14:55)
[2021-07-25] MEDS: Albuterol/Ipratropium 4 GM Inhalation Spray INH SCH ×3 (02:29→09:38)
[2021-07-25] MEDS: Cefepime 1 GM in Premix Bag 1 BAG IV SCH ×2 (02:30→10:21)
[2021-07-25] MEDS: Heparin Sodium 5,000 Units/ML Vial SUBCUT SCH (05:59)
[2021-07-25] MEDS: Metoprolol Tartrate 25 MG Tab PO SCH (05:59)
[2021-07-25 07:46] LABS: BLOOD UREA NITROGEN,BUN 9 mg/dL (7.0-18.0); CARBON DIOXIDE,CO2 28.5 mmol/L (21.0-32.0); CHLORIDE,CL 105 mmol/L (98-107); GLUCOSE RANDOM 92 mg/dL (74-106); POTASSIUM,K 3.6 mmol/L (3.5-5.1); SODIUM,NA 140 mmol/L (136-148)
[2021-07-25] MEDS: Aspirin 81 MG Tab.EC PO SCH (08:46)
[2021-07-25] MEDS: Tamsulosin 0.4 MG Cap.ER PO SCH (08:46)
[2021-07-25] MEDS: amLODIPine 5 MG Tab PO SCH (08:46)
--- NOTE | 2021-07-25 10:15 | PCM.DCSUM1 ---
Discharge Summary - Hospital Course Diagnosis: Stroke: No - Discharge Data Discharge Date: 07/25/21 Discharge Disposition: Home, Self-Care 01 Condition: Fair - Referral to Home Health Primary Care Physician: PCP None - Patient Summary/Data Hospital Course: his is a 58-year-old man with a past medical history of hypertension and sleep apnea who comes to the emergency department with a chief complaint of shortness of breath, fevers, and congestion. He was noted to be hypoxic saturating 85% on room air so he was started on oxygen by nasal cannula which helped improved crease his pulse ox to low 90s. Patient was diaphoretic and tachypneic in the ER. He met SIRS criteria and sepsis protocol was initiated with broad-spectrum antibiotics IV fluids and checking a lactic acid, and obtaining blood cultures. CBC revealed a leukocytosis of 14.22 with neutrophilic predominance. No left shift. INR is normal. CMP is unremarkable except for hypocalcemia at 8.4. Lactic acid is normal. Alkaline phosphatase is elevated at 124. Troponin is negative. BNP is mildly elevated at 291. Covid is negative. Chest x-ray reveals increased soft tissue density in the right hilum likely due to overlapping vascular structures. EKG was unremarkable, CT angiogram of the chest does not reveal any evidence of pulmonary embolism. There is bilateral patchy infiltrates suggestive of COVID-19 infection, although patient's Covid test was negative. Patient was admitted to the hospital for acute hypoxic respiratory failure due to atypical pneumonia. He was treated with broad spectrum antibiotics. He was started on metoprolol and aspirin due to paroxysmal atrial fibrillation. His symptoms improved and he was satting 96- 100% on room air on day of discharge. He was discharged home with seven more days of Levaquin. He was counceled on the need to abstain from cocaine and tobacco which he is motivated to do. A zio patch was ordered and a referral to cardiology was made. He is to follow up with Dr. Bush. - Patient Instructions Diet: Heart Healthy Diet Activity: As Tolerated Driving: May Drive Today Showering/Bathing: May Shower Notify Provider of: Fever, Increased Pain, Swelling and Redness, Drainage, Nausea and/or Vomiting Other/Special Instructions: Wear the Zio patch for 14 days and then mail in. Follow up with Dr. Bush next week. Take antibotic Levaquin for one week. Watch out for signs of allergy such as rash or pain in the joints which could be side effects from levaquin. We are starting a new medication Metoprolol to help with control of heart rate. It can lower blood pressure and cause fatigue so monitor blood pressure and heart rate daily. Due to your abnormal heart rhythm called atrial fibrillation you should take aspirin daily to prevent stroke. - Discharge Plan *PRESCRIPTION DRUG MONITORING PROGRAM REVIEWED*: Not Applicable *COPY OF PRESCRIPTION DRUG MONITORING REPORT IN PATIENT FIDELIA: Not Applicable Prescriptions/Med Rec: Tamsulosin [Flomax] 0.4 mg PO DAILY #30 tab Aspirin [Halfprin] 81 mg PO DAILY #30 tab.ec levoFLOXacin [Levaquin] 750 mg PO DAILY #7 tab Metoprolol Tartrate [Lopressor] 25 mg PO Q12H #60 tablet amLODIPine Besylate [Norvasc] 10 mg PO DAILY #30 tablet Home Medications: Home Meds Aspirin [Halfprin] 81 mg PO DAILY #30 tab.ec 07/24/21 [Rx] Metoprolol Tartrate [Lopressor] 25 mg PO Q12H #60 tablet 07/24/21 [Rx] levoFLOXacin [Levaquin] 750 mg PO DAILY #7 tab 07/24/21 [Rx] Tamsulosin [Flomax] 0.4 mg PO DAILY #30 tab 07/25/21 [Rx] amLODIPine Besylate [Norvasc] 10 mg PO DAILY #30 tablet 07/25/21 [Rx] Forms: ED Department Discharge Referrals: Eduardo Bush MD [Physician] - 08/02/21 2:00 pm (Please arrive 15 minutes early, bring insurance ID card and wear mask.) Aurea Walker MD [Physician] - (referral form faxed,awaits appointment date.) - Discharge Summary/Plan Comment DC Time >30 min.: No Total # of Minutes for Discharge Time: 20 - Patient Data Vitals - Most Recent: Last Vital Signs Temp 36.6 C 07/25/21 08:44 Pulse 71 07/25/21 08:44 Resp 18 07/25/21 08:44 BP 135/84 07/25/21 08:46 Pulse Ox 96 07/25/21 08:44 Weight - Most Recent: 73.255 kg I&O - Last 24 hours: Intake & Output 07/24/21 07/25/21 07/25/21 22:59 06:59 14:59 Intake Total 1580 500 Output Total 750 Balance 830 500 Lab Results - Last 24 hrs: Laboratory Results - last 24 hr 07/25/21 07/25/21 Range/Units 06:55 06:55 WBC 6.09 (4.0-11.0) K/uL RBC 4.69 (4.50-5.90) M/uL Hgb 14.3 (13.0-17.0) g/dL Hct 42.6 (38.0-50.0) % MCV 90.8 (80.0-98.0) fL MCH 30.5 (27.0-32.0) pg MCHC 33.6 (31.0-37.0) g/dL RDW Std Deviation 43.3 (28.0-62.0) fl RDW Coeff of Shakir 13 (11.0-15.0) % Plt Count 243 (150-400) K/uL MPV 12.20 H (7.40-12.00) fL Neut % (Auto) 56.2 (48.0-80.0) % Lymph % (Auto) 29.4 (16.0-40.0) % [place] % (Auto) 12.8 (0.0-15.0) % Eos % (Auto) 1.1 (0.0-7.0) % Baso % (Auto) 0.5 (0.0-1.5) % Neut # (Auto) 3.4 (1.4-5.7) K/uL Lymph # (Auto) 1.8 (0.6-2.4) K/uL [place] # (Auto) 0.8 (0.0-0.8) K/uL Eos # (Auto) 0.1 (0.0-0.7) K/uL Baso # (Auto) 0.0 (0.0-0.1) K/uL Nucleated RBC % 0.0 /100WBC Nucleated RBCs # 0 K/uL Sodium 140 (136-148) mmol/L Potassium 3.6 (3.5-5.1) mmol/L Chloride 105 (98-107) mmol/L Carbon Dioxide 28.5 (21.0-32.0) mmol/L BUN 9 (7.0-18.0) mg/dL Creatinine 1.0 (0.8-1.3) mg/dL Est Cr Clr Drug Dosing 74.43 mL/min Estimated GFR (MDRD) > 60.0 ml/min Glucose 92 (74-106) mg/dL Calcium 8.4 L (8.5-10.1) mg/dL ANGELA Results - Last 24 hrs: Microbiology 07/20/21 16:56 Aerobic Blood Culture - Preliminary Blood - Venous - Lab Draw NO GROWTH AFTER 4 DAYS Anaerobic Blood Culture - Preliminary NO GROWTH AFTER 4 DAYS 07/20/21 15:05 Aerobic Blood Culture - Preliminary Blood - Venous NO GROWTH AFTER 4 DAYS Anaerobic Blood Culture - Preliminary NO GROWTH AFTER 4 DAYS Med Orders - Current: Current Medications Acetaminophen (Acetaminophen 325 Mg Tab) 650 mg PO Q4H PRN PRN Reason: Pain (Mild 1-3)/fever Last Admin: 07/22/21 10:40 Dose: 650 mg Documented by: Albuterol/Ipratropium (Albuterol/Ipratropium 3.0-0.5 Mg/3 Ml Neb Soln) 3 ml NEB Q4HRRT PRN PRN Reason: Shortness Of Breath/wheezing Last Admin: 07/21/21 02:46 Dose: 3 ml Documented by: Albuterol/Ipratropium (Albuterol/Ipratropium 4 Gm Inhalation [place]) 0 gm INH Q4HRRT [facility] Last Admin: 07/25/21 09:38 Dose: 1 puff Documented by: Amlodipine Besylate (Amlodipine 5 Mg Tab) 10 mg PO DAILY [facility] Last Admin: 07/25/21 08:46 Dose: 10 mg Documented by: Aspirin (Aspirin 81 Mg Tab.Ec) 81 mg PO DAILY [facility] Last Admin: 07/25/21 08:46 Dose: 81 mg Documented by: Heparin Sodium (Porcine) (Heparin Sodium 5,000 Units/Ml Vial) 5,000 units SUBCUT Q8H [facility] Last Admin: 07/25/21 05:59 Dose: 5,000 units Documented by: Cefepime HCl 1 gm/ Premix 50 mls @ 100 mls/hr IV Q8H [facility] Last Admin: 07/25/21 02:30 Dose: 100 mls/hr Documented by: Azithromycin 500 mg/ Sodium (Chloride) 250 mls @ 250 mls/hr IV Q24H [facility] Last Admin: 07/24/21 11:02 Dose: 250 mls/hr Documented by: Labetalol HCl (Labetalol 100 Mg/20 Ml Mdv) 20 mg IVPUSH Q4H PRN PRN Reason: Hypertension Last Admin: 07/21/21 06:15 Dose: 20 mg Documented by: Lorazepam (Lorazepam 2 Mg/Ml Sdv) 1 mg IVPUSH Q6H PRN PRN Reason: Anxiety Last Admin: 07/21/21 02:39 Dose: 1 mg Documented by: Metoprolol Tartrate (Metoprolol Tartrate 25 Mg Tab) 25 mg PO Q12H [facility] Last Admin: 07/25/21 05:59 Dose: 25 mg Documented by: Ondansetron HCl (Ondansetron 4 Mg/2 Ml Sdv) 4 mg IVPUSH Q4H PRN PRN Reason: Nausea/Vomiting Sodium Chloride (Sodium Chloride 0.9% 10 Ml Syringe) 10 ml FLUSH ASDIRECTED PRN PRN Reason: Keep Vein Open Last Admin: 07/20/21 17:24 Dose: 10 ml Documented by: Sodium Chloride (Sodium Chloride 0.9% 2.5 Ml Syringe) 2.5 ml FLUSH ASDIRECTED PRN PRN Reason: Keep Vein Open Last Admin: 07/20/21 17:24 Dose: 2.5 ml Documented by: Tamsulosin HCl (Tamsulosin 0.4 Mg Cap.Er) 0.4 mg PO DAILY [facility] Last Admin: 07/25/21 08:46 Dose: 0.4 mg Documented by: Discontinued Medications Albuterol/Ipratropium (Albuterol/Ipratropium 3.0-0.5 Mg/3 Ml Neb Soln) 3 ml NEB ONETIME ONE Stop: 07/20/21 16:06 Last Admin: 07/20/21 16:24 Dose: 3 ml Documented by: Albuterol/Ipratropium (Albuterol/Ipratropium 4 Gm Inhalation [place]) 0 gm INH Q4H [facility] Last Admin: 07/22/21 09:59 Dose: 1 puff Documented by: Amlodipine Besylate (Amlodipine 5 Mg Tab) 10 mg PO ONETIME ONE Stop: 07/20/21 15:37 Last Admin: 07/20/21 15:47 Dose: 10 mg Documented by: Lactated Ringer's (Ringers, Lactated) 1,000 mls @ 999 mls/hr IV .BOLUS ONE Stop: 07/20/21 15:59 Last Admin: 07/20/21 15:20 Dose: 999 mls/hr Documented by: Cefepime HCl 2 gm/ Premix 50 mls @ 100 mls/hr IV ONETIME ONE Stop: 07/20/21 16:59 Last Admin: 07/20/21 17:24 Dose: 100 mls/hr Documented by: Vancomycin HCl 1 gm/ Sodium (Chloride) 250 mls @ 166 mls/hr IV ONETIME ONE Stop: 07/20/21 18:00 Last Admin: 07/20/21 17:24 Dose: 166 mls/hr Documented by: Cefepime HCl 2 gm/ Premix 50 mls @ 100 mls/hr IV ONETIME ONE Stop: 07/20/21 17:59 Last Admin: 07/20/21 17:53 Dose: Not Given Documented by: Lactated Ringer's (Ringers, Lactated) 1,000 mls @ 125 mls/hr IV ASDIRECTED [facility] Last Admin: 07/22/21 22:50 Dose: 125 mls/hr Documented by: Vancomycin HCl 1 gm/ Sodium (Chloride) 250 mls @ 166 mls/hr IV Q8H [facility] Last Admin: 07/21/21 18:22 Dose: Not Given Documented by: Vancomycin HCl 1.25 gm/ Sodium (Chloride) 250 mls @ 165 mls/hr IV Q8H [facility] Last Admin: 07/22/21 18:56 Dose: Not Given Documented by: Vancomycin HCl 1.25 gm/ Sodium (Chloride) 250 mls @ 165 mls/hr IV Q8H [facility] Last Admin: 07/23/21 15:32 Dose: Not Given Documented by: Iopamidol (Iopamidol 755 Mg/Ml 500 Ml Multipack Bottle) 100 ml IVPUSH ONETIME STA Stop: 07/20/21 17:53 Last Admin: 07/20/21 17:54 Dose: 100 ml Documented by: Lorazepam (Lorazepam 2 Mg/Ml Sdv) 1 mg IVPUSH ONETIME ONE Stop: 07/20/21 16:08 Last Admin: 07/20/21 16:08 Dose: 1 mg Documented by: Lorazepam (Lorazepam 2 Mg/Ml Sdv) Confirm Administered Dose 2 mg .ROUTE .STK-MED ONE Stop: 07/20/21 16:08 Last Admin: 07/20/21 16:26 Dose: Not Given Documented by: Morphine Sulfate (Morphine 2 Mg/Ml Syringe) 1 mg IVPUSH Q3H PRN PRN Reason: Pain (severe 7-10) Stop: 07/21/21 20:44 Last Admin: 07/21/21 04:24 Dose: 1 mg Documented by: Potassium Chloride (Potassium Chloride 20 Meq Tab.Er) 40 meq PO ONETIME ONE Stop: 07/21/21 16:32 Last Admin: 07/21/21 17:15 Dose: 40 meq Documented by: Potassium Chloride (Potassium Chloride 20 Meq Tab.Er) 20 meq PO ONETIME ONE Stop: 07/24/21 14:56 Last Admin: 07/24/21 15:09 Dose: 20 meq Documented by: Vancomycin HCl (Pharmacy To Dose - Vancomycin) 1 dose .XX ASDIRECTED TIMOTHY
--- NOTE | 2021-07-27 13:06 | ECHO ---
EXAM DATE: 07/20/21 PATIENT'S AGE: 56 The ECHO report has been scanned into [employer] and can be seen in this patient's EMR (Electronic Medical Record) under the REPORTS section. The report has also been scanned into PACS. LISA
== END 2021-07-25 11:37 | disposition home or self-care (01) | DRG 871 ==
LOC: MW.ED 14:31 → MW.MS 19:40 → EDBD 19:40
PROVIDERS: ADMIT Student in an Organized Health Care Education/Training Program; ATTEND Student in an Organized Health Care Education/Training Program
PROC: 5A0945A Assistance with Respiratory Ventilation, 24-96 Consecutive Hours, High Flow/Velocity Cannula (ICD-10-PCS; principal; 2021-07-20)
DX: A41.9 Sepsis, unspecified organism (principal); J18.9 Pneumonia, unspecified organism; A41.89 Other specified sepsis; U07.1 COVID-19; J15.9 Unspecified bacterial pneumonia; G47.30 Sleep apnea, unspecified; J96.01 Acute respiratory failure with hypoxia; G47.33 Obstructive sleep apnea (adult) (pediatric); I10 Essential (primary) hypertension; I48.0 Paroxysmal atrial fibrillation; Z79.899 Other long term (current) drug therapy; E83.51 Hypocalcemia
CPT/HCPCS: 36415; 71045; 71275; 80053; 82947; 83605; 83880; 84484 ×2; 85025; 85610; 87040 ×2; 93005 ×2; 94640; 96365; 96366; 96368; 96375; 99291; A9270; J0692; J2060; J3370; J7050; J7120; Q9967; U0002; 80048; 80202; 83735; 84100; 87899; 93010; 93306; 94664; J0456; J1644; J2270; J3490; J7620-GY

== ENCOUNTER 2022-10-25 09:05 | Emergency (ER) | payer MEDICARE, MEDICAID ==
[2022-10-25] MEDS ORDERED: Lactated Ringers 1,000 ML IV ONE (12:17)
[2022-10-25 13:03] LABS: CARBON DIOXIDE,CO2 26.9 mmol/L (21.0-32.0); POTASSIUM,K 4.1 mmol/L (3.5-5.1)
[2022-10-25] MEDS ORDERED: Iopamidol 755 MG/ML 500 ML Multipack Bottle IVPUSH ONE (13:29)
[2022-10-25] MEDS ORDERED: Ibuprofen 400 MG Tab PO ONE (14:06)
[2022-10-25] MEDS ORDERED: Ondansetron 4 MG Tab.DIS PO ONE (14:06)
== END 2022-10-25 15:33 | disposition home or self-care (01) ==
LOC: MW.ED 09:05
DX: N32.89 Other specified disorders of bladder (principal); I10 Essential (primary) hypertension; Z79.899 Other long term (current) drug therapy
CPT/HCPCS: 36415; 74178; 80053; 81001; 82550; 85025; 96360; 99284; J7120; Q9967

== ENCOUNTER 2022-11-19 11:26 | Emergency (ER) | payer MEDICARE, MEDICAID ==
[2022-11-19] MEDS ORDERED: Sodium Chloride 0.9% 10 ML Syringe FLUSH PRN (13:32)
[2022-11-19] MEDS ORDERED: Sodium Chloride 0.9% 2.5 ML Syringe FLUSH PRN (13:32)
[2022-11-19] MEDS ORDERED: Cyclobenzaprine 10 MG Tab PO ONE (13:39)
[2022-11-19] MEDS ORDERED: Ketorolac 30 MG/ML SDV IVPUSH ONE (13:39)
[2022-11-19 14:35] LABS: POTASSIUM,K 4.3 mmol/L (3.5-5.1)
== END 2022-11-19 16:08 | disposition home or self-care (01) ==
LOC: MW.ED 11:26
DX: M79.621 Pain in right upper arm (principal); I10 Essential (primary) hypertension; Z79.82 Long term (current) use of aspirin; Z79.899 Other long term (current) drug therapy
CPT/HCPCS: 72125; 73030; 73090; 80053; 85025; 93930; 96374; 99283; A9270; J1885; J3490

== ENCOUNTER 2025-01-20 13:56 | Emergency (ER) | payer MEDICARE, MEDICAID ==
[2025-01-20] MEDS ORDERED: Sodium Chloride 0.9% 2.5 ML Syringe FLUSH PRN (13:58)
[2025-01-20] MEDS ORDERED: Sodium Chloride 0.9% 10 ML Syringe FLUSH PRN (13:58)
[2025-01-20 14:07] LABS: HEMATOCRIT 45.6 % (42.0-52.0); HEMOGLOBIN 15.3 g/dL (14.0-18.0); MEAN CORPUSCULAR HEMOGLOBIN 29.8 pg (28.0-32.0); MEAN CORPUSCULAR HGB CONC 33.6 g/dL (32.0-36.0); MEAN CORPUSCULAR VOLUME 88.9 fL (83.0-99.0); MEAN PLATELET VOLUME 11.5 fL (9.4-12.4); PLATELET COUNT,PLT 224 K/uL (150-400); RED BLOOD CELL COUNT 5.13 M/uL (4.52-5.90); WHITE BLOOD CELL COUNT,WBC 7.85 K/uL (3.9-11.3)
[2025-01-20 14:31] LABS: INR 1.04 (0.86-1.11)
[2025-01-20 15:00] LABS: A/G RATIO 0.9 (0.9-1.6); ALBUMIN 3.5 g/dL (3.4-5.0); BILIRUBIN TOTAL 0.3 mg/dL (0.2-1.0); CALCIUM 10.1 mg/dL (8.5-10.1); CARBON DIOXIDE,CO2 27.5 mmol/L (21.0-32.0); CREATININE 1.2 mg/dL (0.8-1.3); EST CRCL DRUG DOSING (CG) 55.5 mL/min; POTASSIUM,K 4.2 mmol/L (3.5-5.1); PROTEIN TOTAL,TP 7.3 g/dL (6.4-8.2); TSH ULTRASENSITIVE 1.21 uIU/mL (0.36-3.74)
[2025-01-20 15:13] LABS: EOSINOPHILS ABSOLUTE MAN 0.16 K/uL (0.00-0.45); EOSINOPHILS PERCENT MAN 2 % (0-6); LYMPHOCYTES ABSOLUTE MAN 2.75 K/uL (1.00-4.80); LYMPHOCYTES PERCENT MAN 35 % (24-44); MONOCYTES ABSOLUTE MAN 0.63 K/uL (0.00-0.80); MONOCYTES PERCENT MAN 8 % (0-8); SEG NEUTROPHILS ABSOLUTE MAN 4.32 K/uL (1.80-7.70); SEG NEUTROPHILS PERCENT MAN 55 % (41-71)
== END 2025-01-20 15:27 | disposition home or self-care (01) ==
LOC: MW.ED 13:56
DX: R07.2 Precordial pain (principal); I10 Essential (primary) hypertension; Z79.899 Other long term (current) drug therapy; Z75.8 Other problems related to medical facilities and other health care; Z79.84 Long term (current) use of oral hypoglycemic drugs
CPT/HCPCS: 36415; 71045; 71045-26; 80053; 83735; 83880; 84443; 84484; 85025; 85610; 87428-QW; 93005; 93010; 99285